=== PATIENT | male | born 1960 | race Caucasian/White ===

== ENCOUNTER 2019-11-16 06:23 | Day surgery (SDC) | payer OTHER ==
[2019-11-11 14:48] LABS: Absolute Lymphocytes (CBC) 0.3 K/uL (0.7-4.9); Basophils % 0.5 % (0-1.3); Hematocrit 38.6 % (39.6-49.0); Lymphocytes % 3.3 % (15.3-44.8); MPV 9.5 fL (7.6-11.3); RBC Red Blood Cell Count 4.71 M/uL (4.33-5.43)
[2019-11-11 15:11] LABS: Blood Morphology Comment NOT SEEN (NOT SEEN); Platelet Estimate ADEQ; Urine White Blood Cell Casts OK
[2019-11-16] MEDS ORDERED: Ringers Lactate 1,000 ML IV ONE ×3 (06:44→13:09)
[2019-11-16] MEDS ORDERED: LIDOCAINE 1% MPF 5 ML VIAL ONE (07:06)
[2019-11-16] MEDS ORDERED: MIDAZOLAM HCL 2 MG/2 ML INJ ONE ×2 (07:06→11:32)
[2019-11-16] MEDS ORDERED: FENTANYL CITR 100 MCG/2 ML ONE ×2 (07:06→11:33)
[2019-11-16] MEDS ORDERED: propofoL 200 MG/20 ML VIAL IV ONE ×2 (07:06→11:32)
[2019-11-16] MEDS ORDERED: Mastisol Adhesive Liq ONE (07:13)
[2019-11-16] MEDS: LIDOCAINE 1% W/EPI 1:100,000 MDV 20 ML VIAL ONE ×2 (07:16→12:36)
[2019-11-16] MEDS ORDERED: LIDOCAINE 2% MPF 5 ML VIAL ONE (11:32)
[2019-11-16] MEDS ORDERED: ONDANSETRON 4 MG/2 ML VIAL ONE (11:33)
[2019-11-16] MEDS ORDERED: Phenylephrine HCl 10 MG/ML 1 ML VIAL ONE (12:37)
[2019-11-16] MEDS ORDERED: NS 0.9% VIAL 10 ML ONE (12:37)
[2019-11-16] MEDS ORDERED: EPHEDRINE SULF 50 MG/ML VIAL ONE (12:46)
--- NOTE | 2019-11-16 13:13 | P.BOP ---
Preoperative diagnosis: right neck mass Postoperative diagnosis: same Primary procedure: incisional lymph node biospy Wholesale Buyer: MARGARETTE KIM Estimated blood loss: minimal Specimen: R fixed neck mass Findings: invasion into SCM Anesthesia: General Complications: None Fluids & blood products: crystalloid 800ml Transferred to: Recovery Room Condition: Good
[2019-11-16 14:11] VITALS: TEMP 97
[2019-11-16 14:56] VITALS: BP 125/67; O2SAT 100
--- NOTE | 2019-11-17 00:29 | OP ---
Date of Procedure: 11/16/2019 Surgeon: Gemini Gaspar MD Supervisor Post Wave: Betsy Ratliff. Preoperative Diagnosis: 5 cm right fixed neck mass. Postoperative Diagnosis: 5 cm right fixed neck mass. Procedure: Incisional biopsy of deep cervical lymph node. Indications For Procedure: Presents with a large fixed right neck mass. He underwent a fine-needle aspiration biopsy which was nondiagnostic. After consideration of this, a CT of the neck was made, which confirmed a firm 4.5, solid mass, which was not robustly contrast enhancing and did not appear to be intimately attached or involving the carotid. The risks, benefits, and alternatives were discussed with the patient who agreed to proceed. In the knee interim planning stages the patient lost approximately 30 pounds and was complaining of dizziness and was noted to be hypotensive in the preop area. On arrival to the preop on the day of surgery, his systolic blood pressure was 80. He was treated with a bolus of IV fluids and improved to the 84 to 92 systolic range. Decision was made to defer surgery several hours to ensure the patient had a stable blood pressure before proceeding to the operating room. At approximately 1130 the patient was noted to have stable blood pressure in the preoperative area with systolics around 100 to 110, and decision was made to proceed with surgery. Description Of Procedure: The patient was brought to the operating room. He was placed under general anesthesia via LMA. The head was turned to the left for exposure of the right neck. The neck was cleaned with alcohol and planned skin incision site was injected with 1% lidocaine with epinephrine. A total of 2 mL were used. The skin was then prepped and draped in a sterile fashion with Betadine. A 2-1/2 cm incision was made through the skin and subcutaneous tissues. Platysma was identified and divided. The mass was deep to the supraclavicular muscle. The posterior border of this muscle was identified and retracted anteriorly. A Bovie electrocautery was then used to remove a 2 x 2 x 1.5 portion of the mass which was sent fresh to pathology for evaluation. The bleeding from the surgical site was controlled with direct pressure and Bovie electrocautery. The wound was then thoroughly irrigated and hemostasis was ensured. The incision was then closed in a layered fashion using 4-0 Vicryl deep sutures and a 5-0 fast-absorbing running suture. The skin was cleaned and dried, and an adhesive bandage was applied over the incision site. The patient was then returned to care of anesthesia for extubation in the operating room. During the procedure, the patient received several small boluses of fluid, but his blood pressure remained stable. Patient was then was transported to the recovery room in stable condition. Complications: None. Disposition: The patient will be discharged home in the care of his brother and will be contacted regarding the results of the pathology at a later date. PRANAY Voice ID: [id number] Report ID: [id number] MTDD
== END 2019-11-16 14:50 | disposition home or self-care (01) ==
LOC: OR 06:23
PROVIDERS: ATTEND Otolaryngology
PROC: 07B10ZX Excision of Right Neck Lymphatic, Open Approach, Diagnostic (ICD-10-PCS; principal; 2019-11-16 07:30)
DX: C76.0 Malignant neoplasm of head, face and neck (principal); I25.10 Atherosclerotic heart disease of native coronary artery without angina pectoris; M19.90 Unspecified osteoarthritis, unspecified site; I10 Essential (primary) hypertension; J30.9 Allergic rhinitis, unspecified; F17.200 Nicotine dependence, unspecified, uncomplicated
CPT/HCPCS: 85025; 36415; 88305; 38510; J2704 ×2; J2370; J2250; J3010; J7120 ×3; J2405; 88333

== ENCOUNTER 2019-11-18 15:31 | Inpatient (IN) | payer OTHER ==
[2019-11-18] MEDS ORDERED: NA CHLORIDE 0.9% 500 ML ONE (16:27)
[2019-11-18 16:32] LABS: Absolute Lymphocytes (CBC) 0.5 K/uL (0.7-4.9); Basophils % 0.3 % (0-1.3); Lymphocytes % 6.2 % (15.3-44.8); MPV 8.3 fL (7.6-11.3); RBC Red Blood Cell Count 4.63 M/uL (4.33-5.43)
--- NOTE | 2019-11-18 16:35 | RAD REPORT ---
EXAM DESCRIPTION: RAD - Chest Single View - 11/18/2019 4:22 pm CLINICAL HISTORY: Dyspnea COMPARISON: May 2013 TECHNIQUE: AP portable chest image was obtained 1614 hours . FINDINGS: No peripheral mass or consolidation. Lung volumes are low. Right hemidiaphragm elevation n oted. Heart and vasculature are normal. No measurable pleural effusion and no pneumothorax. No acute bony abnormality seen. No acute aortic findings suspected. IMPRESSION: No acute cardiopulmonary process.
[2019-11-18 16:50] LABS: Potassium 4.3 mmol/L (3.5-5.1)
[2019-11-18 17:16] LABS: Blood Morphology Comment NOT SEEN (NOT SEEN); Platelet Estimate ADEQ
--- NOTE | 2019-11-18 17:20 | RAD REPORT ---
EXAM DESCRIPTION: CT - Chest For Pe Angio - 11/18/2019 5:06 pm CLINICAL HISTORY: DYSPNEA COMPARISON: Chest Single View dated 11/18/2019 TECHNIQUE: Dynamically enhanced 3 mm thick images of the chest were obtained during administration o f approximately 150mL Isovue 370 IV contrast. Coronal and oblique MIP reconstruction images were gene rated and reviewed. Exam utilizes a protocol to evaluate the pulmonary arterial tree. All CT scans are performed using dose optimization technique as appropriate and may include automated exposure control or mA/KV adjustment according to patient size. FINDINGS: No pulmonary emboli are identified. The aorta as imaged shows no acute or suspicious finding. No pericardial thickening or effusion. Subpleural airspace opacification is present lateral left upper lung field. No pleural effusion or pl eural thickening. No mediastinal or hilar suspicious masses. No chest wall masses or abnormal axillary lymphadenopathy. IMPRESSION: No pulmonary emboli identified. Small left upper lobe pneumonia.
[2019-11-18] MEDS ORDERED: ALBUTEROL 2.5 MG/3 ML NEB SOL NEB PRN (18:14)
--- NOTE | 2019-11-18 18:15 | ER ---
Nurse's Notes [facility] Name: Bernard Joiner Jr Age: 59 yrs Sex: Male : 1960 Arrival Date: 11/18/2019 Time: 15:31 Bed 24 Private MD: Diagnosis: Hypotension, unspecified;Dehydration;Pneumonia Presentation: 11/18 15:50 Presenting complaint: Patient states: i was sent from [facility] because of mg2 hypotension. systolic BP was 80's. i dont have appetite lately. Transition of care: patient was not received from another setting of care. Onset of symptoms was November 18, 2019. Risk Assessment: Do you want to hurt yourself or someone else? Patient reports no desire to harm self or others. Initial Sepsis Screen: Does the patient meet any 2 criteria? No. Patient's initial sepsis screen is negative. Does the patient have a suspected source of infection? No. Patient's initial sepsis screen is negative. Care prior to arrival: None. 15:50 Method Of Arrival: Wheelchair mg2 15:50 Acuity: CHARLIE 3 mg2 Historical: - Allergies: 16:58 No Known Allergies; mg2 - Home Meds: 16:58 Lisinopril Oral [Active]; Metoprolol Tartrate Oral [Active]; atorvastatin oral oral mg2 [Active]; Aspirin Oral [Active]; Plavix Oral [Active]; Fish Oil oral oral [Active]; - PMHx: 16:58 lymphoma; Hyperlipidemia; Hypertension; mg2 - PSHx: 16:58 lymphoma removal in the neck area; Heart stents; open heart surgery; mg2 - Immunization history:: Flu vaccine is not up to date. - Social history:: Smoking status: . - Ebola Screening: : No symptoms or risks identified at this time. - Family history:: not pertinent. - Hospitalizations: : No recent hospitalization is reported. Screenin:01 Abuse screen: Denies threats or abuse. Denies injuries from another. Nutritional mg2 screening: No deficits noted. Tuberculosis screening: No symptoms or risk factors identified. Fall Risk Ambulatory Aid- None/Bed Rest/Nurse Assist (0 pts). Assessment: 16:01 Reassessment: echo at bedside ongoing. mg2 16:01 General: Appears in no apparent distress. comfortable, Behavior is calm, cooperative. mg2 Pain: Denies pain. Neuro: Level of Consciousness is awake, alert, obeys commands, Oriented to person, place, time, situation. Cardiovascular: Capillary refill < 3 seconds Patient's skin is warm and dry. Respiratory: patient is doing pursed lip breathing. GI: Reports loss of appetite. : No signs and/or symptoms were reported regarding the genitourinary system. EENT: No signs and/or symptoms were reported regarding the EENT system. Derm: Skin is pale. Musculoskeletal: Circulation, motion, and sensation intact. Capillary refill < 3 seconds. 18:48 Reassessment: Patient appears in no apparent distress at this time. Patient and/or mg2 family updated on plan of care and expected duration. Pain level reassessed. Patient is alert, oriented x 3, equal unlabored respirations, skin warm/dry/pink. dr valles -hospitalist came and assessed the patient. admission agreed by the patient. Vital Signs: 15:53 BP 98 / 68; Pulse 82; Resp 18; Pulse Ox 98% on R/A; mg2 16:33 Temp 98.8; mg2 16:51 BP 94 / 56; Pulse 76; Resp 18; Pulse Ox 99% on R/A; mg2 16:58 Weight 84.37 kg; Height 5 ft. 6 in. (167.64 cm); mg2 17:17 BP 130 / 78; Pulse 83; Resp 18; Pulse Ox 98% on R/A; mg2 18:49 BP 115 / 78; Pulse 80; Resp 18; Temp 98.5; Pulse Ox 100% on R/A; mg2 16:58 Body Mass Index 30.02 (84.37 kg, 167.64 cm) mg2 ED Course: 15:31 Patient arrived in ED. as 15:38 Ricco Curtis MD is Attending Physician. rn 15:50 Milton Wilson RN is Primary Nurse. mg2 15:53 Triage completed. mg2 15:54 Arm band placed on. mg2 16:03 Patient has correct armband on for positive identification. monitor and storage bin tender on. Pulse mg2 ox on. NIBP on. Door closed. Warm blanket given. 16:22 XRAY Chest (1 view) In Process Unspecified. EDMS 16:32 No provider procedures requiring assistance completed. Inserted saline lock: 20 gauge mg2 in right antecubital area, using aseptic technique. Blood collected. by PASHA Dawkins. 16:51 Pillow given. mg2 17:06 CT Chest For PE Angio In Process Unspecified. EDMS 18:13 Eder Dacosta MD is Hospitalizing Provider. rn 19:59 Patient admitted, IV remains in place. mg2 Administered Medications: 16:27 Drug: NS 0.9% 500 ml Route: IV; Rate: bolus; Site: right antecubital; mg2 18:47 Follow up: Response: No adverse reaction; IV Status: Completed infusion; IV Intake: mg2 500ml 18:47 Drug: LevaQUIN 750 mg Volume: 150 ml; Route: IVPB; Infused Over: 90 mins; Site: right mg2 antecubital; 19:30 Follow up: IV Status: Infusion continued upon admission mg2 Intake: 18:47 IV: 500ml; Total: 500ml. mg2 Outcome: 18:14 Decision to Hospitalize by Provider. rn 19:59 Admitted to Tele accompanied by tech, via wheelchair, room 415, with chart, Report mg2 called to PASHA Saldivar 19:59 Condition: stable 19:59 Instructed on the need for admit, Demonstrated understanding of instructions. 20:00 Patient left the ED. mg2 Signatures: Dispatcher [employer] Debora Vasques Roman, MD MD rn Gardose, Michele, RN RN mg2
--- NOTE | 2019-11-18 18:15 | EDPHYS ---
Physician Documentation [facility] Name: Bernard Joiner Jr Age: 59 yrs Sex: Male : 1960 Arrival Date: 11/18/2019 Time: 15:31 Bed 24 Private MD: ED Physician Ricco Curtis HPI: 11/18 16:14 This 59 yrs old Male presents to ER via Wheelchair with complaints of Blood rn Pressure Problem. 16:[address] Kat' office for low blood pressure. Has been feeling rn generalized weakness for some time, has possible lymphoma vs cancer, had neck surgery a few days ago, no problems from surgery. No neck pain or trouble swallowing. Reports loss of appetite and not eating/drinking lately, feels is cause of his low blood pressure. Seen by Dr. Kat, who does not believe this is cardiac in nature, and feels is dehydration and requests fluids be given and ECHO performed to rule out effusion/tamponade. . Onset: The symptoms/episode began/occurred at an unknown time. Severity of symptoms: At their worst the symptoms were mild. 16:21 The patient has experienced similar episodes in the past. rn Historical: - Allergies: 16:58 No Known Allergies; mg2 - Home Meds: 16:58 Lisinopril Oral [Active]; Metoprolol Tartrate Oral [Active]; atorvastatin oral oral mg2 [Active]; Aspirin Oral [Active]; Plavix Oral [Active]; Fish Oil oral oral [Active]; - PMHx: 16:58 lymphoma; Hyperlipidemia; Hypertension; mg2 - PSHx: 16:58 lymphoma removal in the neck area; Heart stents; open heart surgery; mg2 - Immunization history:: Flu vaccine is not up to date. - Social history:: Smoking status: . - Ebola Screening: : No symptoms or risks identified at this time. - Family history:: not pertinent. - Hospitalizations: : No recent hospitalization is reported. ROS: 17:40 Constitutional: Negative for fever, chills Eyes: Negative for injury, pain, redness, rn and discharge, Neck: Negative for injury, pain, and swelling, Cardiovascular: Negative for chest pain, palpitations, and edema, Respiratory: Negative for cough, wheezing, and pleuritic chest pain, Abdomen/GI: Negative for abdominal pain, nausea, vomiting, diarrhea, and constipation, MS/Extremity: Negative for injury and deformity, Skin: Negative for injury, rash, and discoloration, Neuro: Negative for headache, numbness, tingling, and seizure. Exam: 17:40 Constitutional: This is a well developed, well nourished patient who is awake, alert, rn and in no acute distress. Head/Face: Normocephalic, atraumatic. Eyes: Pupils equal round and reactive to light, extra-ocular motions intact. Lids and lashes normal. Conjunctiva and sclera are non-icteric and not injected. Cornea within normal limits. Periorbital areas with no swelling, redness, or edema. ENT: dry MM Cardiovascular: Regular rate and rhythm. No pulse deficits. Respiratory: Some pursed lip breathing but normal rate, clear bilaterally, and speaking full sentences Abdomen/GI: soft, non-tender Skin: Warm, dry with normal turgor. Normal color with no rashes, no lesions, and no evidence of cellulitis. MS/ Extremity: Pulses equal, no cyanosis. Neurovascular intact. Full, normal range of motion. Equal circumference. Neuro: Awake and alert, GCS 15, oriented to person, place, time, and situation. Cranial nerves II-XII grossly intact. Motor strength 5/5 in all extremities. Sensory grossly intact. Vital Signs: 15:53 BP 98 / 68; Pulse 82; Resp 18; Pulse Ox 98% on R/A; mg2 16:33 Temp 98.8; mg2 16:51 BP 94 / 56; Pulse 76; Resp 18; Pulse Ox 99% on R/A; mg2 16:58 Weight 84.37 kg; Height 5 ft. 6 in. (167.64 cm); mg2 17:17 BP 130 / 78; Pulse 83; Resp 18; Pulse Ox 98% on R/A; mg2 18:49 BP 115 / 78; Pulse 80; Resp 18; Temp 98.5; Pulse Ox 100% on R/A; mg2 16:58 Body Mass Index 30.02 (84.37 kg, 167.64 cm) mg2 MDM: 15:38 Patient medically screened. rn 17:50 ED course: Per verbal report, no acute abnormality on ECHO. Specifically no tamponade.. rn 18:12 Differential Diagnosis sepsis, pneumonia. Data reviewed: vital signs, nurses notes, tag and label cutter test result(s), EKG, radiologic studies, CT scan, plain films, and as a result, I will admit patient. Counseling: I had a detailed discussion with the patient and/or guardian regarding: the historical points, exam findings, and any diagnostic results supporting the discharge/admit diagnosis, lab results, radiology results, the need for further work-up and treatment in the hospital. Response to treatment: the patient's symptoms have markedly improved after treatment, and as a result, I will admit patient. 11/18 16:08 Order name: CBC with Diff; Complete Time: 17:50 rn 11/18 16:08 Order name: Basic Metabolic Panel; Complete Time: 17:50 11/18 16:08 Order name: N-Terminal Pro-brain Natriuretic Peptide; Complete Time: 17:50 11/18 16:08 Order name: Urine Microscopic Only rn 11/18 16:36 Order name: Manual Differential; Complete Time: 17:50 [facility] 11/18 18:09 Order name: Blood Culture Adult (2) rn 11/18 15:49 Order name: Echo w/ Doppler em1 11/18 16:08 Order name: EKG; Complete Time: 16:09 11/18 16:08 Order name: XRAY Chest (1 view); Complete Time: 17:50 rn 11/18 16:09 Order name: CT Chest For PE Angio; Complete Time: 17:50 11/18 18:19 Order name: CONS Pharmacy Consult [facility] 11/18 18:19 Order name: Regular [facility] 11/18 16:08 Order name: IV Start; Complete Time: 16:27 rn 11/18 16:08 Order name: EKG - Nurse/Tech; Complete Time: 16:50 rn Administered Medications: 16:27 Drug: NS 0.9% 500 ml Route: IV; Rate: bolus; Site: right antecubital; mg2 18:47 Follow up: Response: No adverse reaction; IV Status: Completed infusion; IV Intake: mg2 500ml 18:47 Drug: LevaQUIN 750 mg Volume: 150 ml; Route: IVPB; Infused Over: 90 mins; Site: right mg2 antecubital; 19:30 Follow up: IV Status: Infusion continued upon admission mg2 Disposition: 11/18/19 18:14 Hospitalization ordered by Eder Dacosta for Inpatient Admission. Preliminary diagnosis are Hypotension, unspecified, Dehydration, Pneumonia. - Bed requested for Telemetry/MedSurg (Inpatient). - Status is Inpatient Admission. mg2 - Condition is Stable. - Problem is new. - Symptoms have improved. UTI on Admission? No Signatures: Dispatcher [employer] EDMS Ricco Curtis MD MD rn Lasagna, Tonya, RN RN tl1 Milton Wilson RN RN mg2 Corrections: (The following items were deleted from the chart) 16:22 16:[address] Kat' office for low blood pressure. Has been feeling rn generalized weakness for some time, has possible lymphoma vs cancer, had neck surgery a few days ago, no problems from surgery. No neck pain or trouble swallowing. Reports loss of appetite and not eating/drinking lately, feels is cause of his low blood pressure. . rn 18:30 18:14 Hospitalization Ordered by Eder Dacosta MD for Inpatient Admission. Preliminary tl1 diagnosis is Hypotension, unspecified; Dehydration; Pneumonia. Bed requested for Telemetry/MedSurg (Inpatient). Status is Inpatient Admission. Condition is Stable. Problem is new. Symptoms have improved. UTI on Admission? No. rn 20:00 18:30 11/18/2019 18:14 Hospitalization Ordered by Eder Dacosta MD for Inpatient mg2 Admission. Preliminary diagnosis is Hypotension, unspecified; Dehydration; Pneumonia. Bed requested for Telemetry/MedSurg (Inpatient). Status is Inpatient Admission. Condition is Stable. Problem is new. Symptoms have improved. UTI on Admission? No. tl1
--- NOTE | 2019-11-18 18:19 | P.HP ---
Certification for Inpatient Patient admitted to: Observation Practitioner: I am a practitioner with admitting privileges, knowledge of patient current condition, hospital course, and medical plan of care. Services: Services provided to patient in accordance with Admission requirements found in Title 42 Section 412.3 of the Code of Federal Regulations Patient History Date of Service: 11/18/19 Reason for admission: Hypotension History of Present Illness: Mr. 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 Patient was noted to be hypotensive. He was found to have a right neck mass 2 months ago, underwent excisional biopsy 2 days ago. For the past 2 months, patient has had an unintentional weight loss of 40 lb. He endorses significantly poor appetite with very minimal p.o. intake. He also noticed that his urine output has decreased over the past few weeks. Patient has a productive cough with yellowish sputum, unable to establish when it started. He denies any fever nor chills. Patient lives alone and a mostly bed-bound. He is symptomatic with this hypotension as he reports significant lightheadedness with position changes. Symptoms been ongoing for few months. Allergies No Known Allergies Allergy (Verified 11/11/19 13:47) Home medications list reviewed: No (not available) Home Medications: Docosahexanoic AC/Epa [Fish Oil 1,000 MG*] 3,000 mg PO 1800 05/10/13 Pravastatin [Pravachol*] 40 mg PO 1800 05/10/13 Aspirin [Aspirin EC 325 MG] 325 mg PO DAILY 11/11/19 Clopidogrel Bisulfate [Plavix] 75 mg PO DAILY 11/11/19 Metoprolol Succinate [Toprol Xl] 50 mg PO BID 11/11/19 - Past Medical/Surgical History Diabetic: No -: htn -: high cholestrol -: angina -: R neck mass -: heart cath 2002 -: s/p excisional biopsy -: CABG - Social History Smoking Status: Former smoker (quit about 1 month ago) Alcohol use: Yes CD- Drugs: No Caffeine use: Yes Review of Systems 10-point ROS is otherwise unremarkable General: Weakness, Malaise Respiratory: Cough, Shortness of Breath, Sputum Physical Examination - Vital Signs Temperature: 98.8 F Blood Pressure: 96/68 Pulse: 82 Respirations: 18 Pulse Ox (%): 96 - Physical Exam General: Alert, In no apparent distress HEENT: Atraumatic, PERRLA, Mucous membr. moist/pink, EOMI, Sclerae nonicteric Neck: Supple, 2+ carotid pulse no bruit, No LAD, Without JVD or thyroid abnormality Respiratory: Clear to auscultation bilaterally, Diminished Cardiovascular: Regular rate/rhythm, Normal S1 S2 Gastrointestinal: Normal bowel sounds, No tenderness Musculoskeletal: No tenderness Integumentary: No rashes Neurological: Normal gait, Normal speech, Normal strength at 5/5 x4 extr, Normal tone, Normal affect Lymphatics: Other (R neck dressing intact) - Studies Laboratory Data (last 24 hrs) 11/18/19 16:20: WBC 7.3, Hgb 12.9 L, Hct 38.0 L, Plt Count 166 11/18/19 16:20: Sodium 131 L, Potassium 4.3, BUN 35 H, Creatinine 1.01, Glucose 79 Imagings Data: No pulmonary emboli identified. Small left upper lobe pneumonia. Assessment and Plan - Plan Mr. Joiner is 59-year-old with suspected malignancy presenting with severe hypovolemia. #Severe hypovolemia-blood pressure improved with IV boluses. Patient was also on antihypertensive at home, on hold for the past 3 days. -blood pressure has improved. monitor closely -IV hydration. #hypotension-multi factorial. Hypovolemia versus acute infection. -hold all antihypertensive. -consult grain cleaner and transfer operator. -continue IV hydration. #Left upper lobe pneumonia-patient has no leukocytosis however with bandemia. - Blood cultures -IV hydration and monitor perfusion. -IV antibiotics. - monitor on telemetry. #right neck mass-status post excision or biopsy. Pathology remains pending. -patient with unintentional weight loss as well. # failure to thrive-resulting in generalized weakness. - P.o. intake encouraged. -PT/OT evaluation. #CAD status post CABG-will resume home medications once available. #Hypovolemic hyponatremia- on NS IVF -reassess in a.m DVT prophylaxis-Lovenox Patient is full code. - Advance Directives Does patient have a Living Will: No Does patient have a Durable POA for Healthcare: No - Code Status/Comfort Care Code Status Assessed: Yes Code Status: Full Code
[2019-11-18] MEDS ORDERED: Levofloxacin 750mg IV 750 MG/150 ML BAG IV ONE (18:23)
[2019-11-18 21:39] LABS: Urine Appearance CLEAR; Urine Blood NEGATIVE (NEG); Urine Color YELLOW; Urine Glucose 1+ (NEG); Urine Protein NEGATIVE (NEG); Urine Specific Gravity >=1.030 (1.005-1.030); Urine Urobilinogen 0.2 mg/dL (0.2-1.0); Urine pH 6.5 (5.0-7.0)
[2019-11-18] MEDS: D5 0.9 NS 1,000 ML IV SCH (21:41)
[2019-11-18] MEDS ORDERED: CEFTRIAXONE/SWI 1gm 1 GM/10 ML SYR ONE (21:57)
[2019-11-18] MEDS ORDERED: CEFTRIAXONE 1 GM/NS 50 ML 1 GM/50 ML BAG IV SCH (22:00)
[2019-11-18 22:05] LABS: Urine Bilirubin NEGATIVE (NEG); Urine Microscopic Reflex NO UMIC
[2019-11-18 22:08] VITALS: BMI 29.9
[2019-11-18 22:47] LABS: Urine Bacteria <20 /HPF (NONE SEEN); Urine Culture Reflex Order NOT NEEDED; Urine RBC <5 /HPF (NONE SEEN)
[2019-11-18] MEDS ORDERED: AZITHROMYCIN 500 MG INJ IVPB ONE (22:57)
[2019-11-18] MEDS ORDERED: NA CHLORIDE 0.9% 250 ML ONE (22:58)
[2019-11-18] MEDS: AZITHROMYCIN IV 500 MG in NA CHLORIDE 0.9% 250 ML IVPB SCH (23:01)
[2019-11-18] MEDS: ACETAMINOPHEN 500 MG TAB PO PRN (23:57)
[2019-11-19] MEDS: D5 0.9 NS 1,000 ML IV SCH ×3 (05:00→17:09)
--- NOTE | 2019-11-19 08:09 | EKG ---
Test Date: 2019-11-18 Test Time: 16:46:46 [employer] Hand: MEASUREMENT RESULTS: Intervals: Rate: 78 AL: 154 QRSD: 88 QT: 338 QTc: 385 [place]: P: 66 AL: 154 QRS: 88 T: 120 INTERPRETIVE STATEMENTS: Normal sinus rhythm T wave abnormality, consider anterior ischemia Abnormal ECG Compared to ECG 05/11/2013 06:57:02 T-wave abnormality now present Myocardial infarct finding no longer present ST (T wave) deviation no longer present Possible ischemia still present Electronically Signed On 11-19-19 08:07:30 [employer]IOR [employer] DBA by Shoaib Foster
--- NOTE | 2019-11-19 08:33 | ECHO ---
HEIGHT: 5 ft 6 in WEIGHT: 186 lb 0 oz DATE OF STUDY: 11/18/[address]: Ricco Curtis JR, MD 2-DIMENSIONAL: YES M.MODE: YES DOPPLER: YES COLOR FLOW: YES TDS: YES PORTABLE: YES DEFINITY: NO BUBBLE STUDY: NO DIAGNOSIS: LOW BLOOD PRESSURE CARDIAC HISTORY: CATHERIZATION: YES SURGERY: YES PROSTHETIC VALVE: NO PACEMAKER: NO MEASUREMENTS (cm) DIASTOLIC (NORMALS) SYSTOLIC (NORMALS) IVSd 1.1 (0.6-1.2) LA Diam 3.5 (1.9-4.0) LVEF 51% LVIDd 4.3 (3.5-5.7) LVIDs 3.2 (2.0-3.5) %FS 26% LVPWd 1.5 (0.6-1.2) Ao Diam 2.9 (2.0-3.7) 2 DIMENSIONAL ASSESSMENT: RIGHT ATRIUM: NORMAL LEFT ATRIUM: NORMAL RIGHT VENTRICLE: NORMAL LEFT VENTRICLE: NORMAL TRICUSPID VALVE: NORMAL MITRAL VALVE: MITRAL ANNULAR CALCIFICATION PULMONIC VALVE: NORMAL AORTIC VALVE: NORMAL PERICARDIAL EFFUSION: NONE AORTIC ROOT: NORMAL LEFT VENTRICULAR WALL MOTION: NORMAL. DOPPLER/COLOR FLOW: NORMAL. COMMENTS: NORMAL LEFT VENTRICULAR SIZE AND FUNCTION. NO EFFUSION. MITRAL ANNULAR CALCIFICATION. NO WALL MOTION ABNORMALITY. TECHNOLOGIST: LILLIAM BARKLEY
[2019-11-19 09:19] LABS: Absolute Lymphocytes (CBC) 0.5 K/uL (0.7-4.9); Basophils % 0.1 % (0-1.3); Hematocrit 34.4 % (39.6-49.0); Lymphocytes % 9.5 % (15.3-44.8); MPV 8.1 fL (7.6-11.3); RBC Red Blood Cell Count 4.22 M/uL (4.33-5.43)
[2019-11-19 09:40] LABS: ALT/SGPT 24 U/L (12-78); AST/SGOT 40 U/L (15-37); Albumin 2.7 g/dL (3.4-5.0); Alkaline Phosphatase 78 U/L (45-117); BUN Blood Urea Nitrogen 21 mg/dL (7-18); Bicarbonate 29 mmol/L (21-32); Bilirubin Direct 0.2 mg/dL (0-0.2); Bilirubin Total 0.4 mg/dL (0.2-1.0); Glucose Level 131 mg/dL (74-106); Potassium 3.6 mmol/L (3.5-5.1); Protein, Total 5.7 g/dL (6.4-8.2); Sodium Level 129 mmol/L (136-145)
[2019-11-19 09:47] LABS: Magnesium 1.4 mg/dL (1.8-2.4)
--- NOTE | 2019-11-19 10:34 | P.PN ---
Subjective Date of Service: 11/19/19 Chief Complaint: Hypotension Subjective: No new changes Still not eating. poor appetite Physical Examination - Vital Signs Temperature: 96.9 F Blood Pressure: 120/68 Pulse: 79 Respirations: 18 Pulse Ox (%): 95 - Physical Exam General: Alert, Other (ill appearing) HEENT: Atraumatic, PERRLA, EOMI Neck: Supple, JVD not distended Respiratory: Clear to auscultation bilaterally, Diminished (R) Cardiovascular: Regular rate/rhythm, Normal S1 S2 Gastrointestinal: Normal bowel sounds, No tenderness Musculoskeletal: No tenderness Integumentary: No rashes Neurological: Normal speech, Normal tone, Abnormal affect (Flat) Lymphatics: No axilla or inguinal lymphadenopathy - Studies Laboratory Data (last 24 hrs) 11/18/19 16:20: WBC 7.3, Hgb 12.9 L, Hct 38.0 L, Plt Count 166 11/18/19 16:20: Sodium 131 L, Potassium 4.3, BUN 35 H, Creatinine 1.01, Glucose 79 Laboratory Tests 11/18/19 11/19/19 11/19/19 16:20 09:04 09:04 WBC 5.2 D Hct 34.4 L Plt Count 139 L Segmented Neutrophils 84 H Band Neutrophils 8 H Absolute Lymphocytes 0.5 L Lymphocytes 6 L Creatinine 0.81 Serum Total Protein 5.7 L Medications List Reviewed: Yes Assessment And Plan - Plan Mr. Joiner is 59-year-old with suspected malignancy presenting with severe hypovolemia. #Severe hypovolemia-blood pressure improved with IV boluses. Patient was also on antihypertensive at home, on hold for the past 3 days. -blood pressure has improved. monitor closely -IV hydration. #Hypotension-multi factorial. Hypovolemia versus acute infection. -hold all antihypertensive. -consult certified low vision therapist. -continue IV hydration. #Left upper lobe pneumonia-patient has no leukocytosis however with bandemia. - Blood cultures -IV hydration and monitor perfusion. -IV antibiotics. - monitor on telemetry. #right neck mass-status post excision or biopsy. Pathology remains pending. -patient with unintentional weight loss as well. # failure to thrive-resulting in generalized weakness. - P.o. intake encouraged. -consult back facer -PT/OT evaluation. #CAD status post CABG-will resume home medications once available. #Hypovolemic hyponatremia- on NS IVF; worsened. -Urine na and osm, serum osm ordered -repeat BMP -consider coiler consult DVT prophylaxis-Lovenox Patient is full code.
[2019-11-19] MEDS ORDERED: Magnesium Sulfate 2gm IVPB 2 G/50 ML BAG IV ONE (11:00)
[2019-11-19 13:14] LABS: Anisocytosis 1+; Blood Morphology Comment NOTED (NOT SEEN); Platelet Estimate ADEQ
--- NOTE | 2019-11-19 15:20 | CON ---
Date of Consultation: 11/19/2019 Mr. Joiner is 59. He was admitted on 11/18/[address] Kat' office for hypotension to rule o ut pericardial effusion. I saw the patient on 11/19/2019. History Of Present Illness: Mr. Joiner is 59, has a history of hypertension, dyslipidemia, and schrader s had CABG before. He had a neck mass excisional biopsy 3 days ago, and apparently, has been hypoten sive even prior to this. He has had significant weight loss. He was continuing his metoprolol and l isinopril at home and that had been held since Friday. He saw Dr. Kat on . He was still hypotensive and Dr. Kat sent him to the hospital to rule out pericardial effusion. Echocardiogra m that was done was normal. Normal ejection fraction. No wall motion abnormalities. No effusion. Patient still had borderline hypotension. He is being hydrated, has no cardiac complaint. Allergies: NONE. Review of Systems: Negative. Social History: Negative. Family History: Noncontributory. Medications: At home include aspirin, Plavix, Lipitor, lisinopril, and metoprolol. The lisinopril a nd metoprolol have been held. Physical Examination: Vital Signs: Stable. Afebrile. No acute distress. HEENT: Negative. Neck: Supple with no bruit. Chest: Clear. Cardiac: Revealed a regular rhythm and rate. No murmurs, gallops, or rubs. Abdomen: Benign. Extremities: Revealed no clubbing, cyanosis, or edema. Diagnostic Data: Sodium was 131. BNP was 500. Rest was negative. Chest x-ray was negative. CTA was negative for pulmonary embolus, but a questionable left upper lobe pneumonia. Impression And Plan: Status post neck mass excisional biopsy, results are pending. We do not really know if he has lymphoma or another form of cancer. We will need to continue to hold the blood press ure medicines, hydrate and await the biopsy results. From an echo standpoint, it was normal. I woul d continue the antibiotics. He does not have any pericardial effusion. He can go home whenever it i s okay with admitting physician. We will see him in the office in the next week or 2. From a ortiz ry artery disease standpoint, he is stable. His dyslipidemia is well controlled on Lipitor. We can definitely discontinue his Plavix. BLUE/RANDALL Voice ID: [id number] Report ID: [id number]
[2019-11-19 18:19] LABS: BUN Blood Urea Nitrogen 16 mg/dL (7-18); Bicarbonate 28 mmol/L (21-32); Glucose Level 124 mg/dL (74-106); Potassium 3.4 mmol/L (3.5-5.1); Sodium Level 129 mmol/L (136-145)
[2019-11-19] MEDS: ACETAMINOPHEN 500 MG TAB PO PRN (19:44)
[2019-11-19] MEDS: CEFTRIAXONE/SWI 1gm 1 GM/10 ML SYR IV SCH (19:53)
[2019-11-19] MEDS: AZITHROMYCIN IV 500 MG in NA CHLORIDE 0.9% 250 ML IVPB SCH (19:58)
[2019-11-19] MEDS: MORPHINE 2 MG/ML SYR IV PRN (22:32)
[2019-11-20] MEDS: D5 0.9 NS 1,000 ML IV SCH ×4 (01:00→21:00)
[2019-11-20] MEDS: ACETAMINOPHEN 500 MG TAB PO PRN (08:57)
[2019-11-20] MEDS: CLOPIDOGREL 75 MG TABLET PO SCH (08:58)
[2019-11-20] MEDS: ATORVASTATIN 80 MG TAB PO SCH (08:58)
[2019-11-20] MEDS: ENSURE PUDDING 4 OZ CUP PO SCH ×2 (08:59→14:00)
[2019-11-20] MEDS ORDERED: ONDANSETRON 4 MG/2 ML VIAL IV PRN (09:10)
[2019-11-20 11:24] LABS: Absolute Lymphocytes (CBC) 0.6 K/uL (0.7-4.9); Basophils % 0.1 % (0-1.3); Hematocrit 32.4 % (39.6-49.0); Lymphocytes % 11.1 % (15.3-44.8); MPV 7.9 fL (7.6-11.3); RBC Red Blood Cell Count 3.95 M/uL (4.33-5.43)
[2019-11-20 11:38] LABS: ALT/SGPT 21 U/L (12-78); AST/SGOT 33 U/L (15-37); Albumin 2.7 g/dL (3.4-5.0); Alkaline Phosphatase 78 U/L (45-117); BUN Blood Urea Nitrogen 9 mg/dL (7-18); Bicarbonate 29 mmol/L (21-32); Bilirubin Total 0.4 mg/dL (0.2-1.0); Glucose Level 121 mg/dL (74-106); Magnesium 1.6 mg/dL (1.8-2.4); Potassium 3.3 mmol/L (3.5-5.1); Protein, Total 5.7 g/dL (6.4-8.2); Sodium Level 132 mmol/L (136-145)
[2019-11-20 11:52] LABS: Blood Morphology Comment NOT SEEN (NOT SEEN); Platelet Estimate DECR
--- NOTE | 2019-11-20 13:59 | P.PN ---
Subjective Date of Service: 11/20/19 Chief Complaint: Hypotension Minimal improvement of appetite. Now reporting post prandial fullness, started weeks ago. Still with some SOB this a.m Physical Examination - Vital Signs Temperature: 97.2 F Blood Pressure: 129/74 Pulse: 71 Respirations: 16 Pulse Ox (%): 92 - Physical Exam General: Alert, Other (ill appearing) HEENT: Atraumatic, PERRLA, EOMI Neck: Supple, JVD not distended Respiratory: Clear to auscultation bilaterally, Normal air movement Cardiovascular: Regular rate/rhythm, Normal S1 S2 Gastrointestinal: Normal bowel sounds, No tenderness Musculoskeletal: No tenderness Integumentary: No rashes Neurological: Normal speech, Normal tone, Abnormal affect Lymphatics: No axilla or inguinal lymphadenopathy - Studies Laboratory Tests 11/20/19 11/20/19 11:02 11:02 RBC 3.95 L Hgb 11.1 L Hct 32.4 L Neutrophils % 76.9 H Sodium 132 L Potassium 3.3 L Creatinine 0.56 Glucose 121 H Calcium 7.8 L Magnesium 1.6 L Medications List Reviewed: Yes Assessment And Plan - Plan Mr. Joiner is 59-year-old with suspected malignancy presenting with severe hypovolemia. #Severe hypovolemia-blood pressure improved with IV boluses. Patient was also on antihypertensive at home, now on hold. -blood pressure has improved. monitor closely -IV hydration. #Hypotension-multi factorial. Hypovolemia versus acute infection. -hold all antihypertensive. -consult felled seam operator. -continue IV hydration. -improved. #Left upper lobe pneumonia-patient had no leukocytosis however with bandemia on admission - Blood cultures -IV hydration and monitor perfusion. -IV antibiotics. - monitor on telemetry. #right neck mass-status post excision or biopsy. Pathology remains pending. -patient with unintentional weight loss as well. # failure to thrive-resulting in generalized weakness. - P.o. intake encouraged. -consulted molder feeder -electrolyte replacement -post prandial fullness- check CT abdomen, rule out obstruction. -PT/OT evaluation. #CAD status post CABG-stable #Hyponatremia- probably hypovolemia, cannot rule out other etiologies. on NS IVF , now mildly improvd. -Urine na and osm, serum osm ordered -will consider engineering director consult DVT prophylaxis-Lovenox Patient is full code. dispo- pending clinical improvement.
[2019-11-20] MEDS ORDERED: POTASSIUM CL SA 10 MEQ TAB PO ONE ×2 (15:00→22:15)
[2019-11-20] MEDS ORDERED: MAGNESIUM SULFATE 1 gm IVPB 1 GM/100 ML BAG IV ONE (15:00)
--- NOTE | 2019-11-20 15:24 | RAD REPORT ---
EXAM DESCRIPTION: CT - Abdomen Pelvis Wo Contrast - 11/20/2019 2:29 pm CLINICAL HISTORY: Abdominal pain COMPARISON: None TECHNIQUE: Computed axial tomography of the abdomen and pelvis was obtained. IV and oral contrast we re not requested. All CT scans are performed using dose optimization technique as appropriate and may include automated exposure control or mA/KV adjustment according to patient size. FINDINGS: The evaluation of solid organs, vessels and bowel is limited secondary to the lack of con trast administration. The liver, spleen, adrenals and kidneys appear grossly normal. The pancreas is normal size. Minimal peripancreatic stranding The appendix is normal. There is no evidence of diverticulitis. Atherosclerosis IMPRESSION: Minimal peripancreatic stranding may indicate a minimal pancreatitis.
[2019-11-20] MEDS: AZITHROMYCIN IV 500 MG in NA CHLORIDE 0.9% 250 ML IVPB SCH (21:04)
[2019-11-20] MEDS: CEFTRIAXONE/SWI 1gm 1 GM/10 ML SYR IV SCH (21:05)
[2019-11-20] MEDS: MORPHINE 2 MG/ML SYR IV PRN (22:28)
[2019-11-21] MEDS: D5 0.9 NS 1,000 ML IV SCH ×3 (06:44→19:30)
[2019-11-21 07:06] LABS: BUN Blood Urea Nitrogen 5 mg/dL (7-18); Bicarbonate 26 mmol/L (21-32); Glucose Level 103 mg/dL (74-106); Potassium 3.6 mmol/L (3.5-5.1); Sodium Level 132 mmol/L (136-145)
[2019-11-21 07:22] LABS: Magnesium 1.4 mg/dL (1.8-2.4)
[2019-11-21] MEDS ORDERED: Magnesium Sulfate 2gm IVPB 2 G/50 ML BAG IV ONE (09:00)
[2019-11-21] MEDS: ENSURE PUDDING 4 OZ CUP PO SCH ×2 (09:00→14:00)
[2019-11-21] MEDS: CLOPIDOGREL 75 MG TABLET PO SCH (10:20)
[2019-11-21] MEDS: ATORVASTATIN 80 MG TAB PO SCH (10:21)
--- NOTE | 2019-11-21 11:12 | P.PN ---
Subjective Date of Service: 11/21/19 Primary Care Provider: Dr. Frey; Cardiology-Dr. Kat Chief Complaint: Hypotension Subjective: Improving, Other (Some nausea this morning. Pain to the epigastric region stable.) Physical Examination - Vital Signs Temperature: 97.6 F Blood Pressure: 128/73 Pulse: 90 Respirations: 17 Pulse Ox (%): 91 - Physical Exam General: Alert, In no apparent distress, Oriented x3, Cooperative HEENT: Atraumatic Neck: Supple Respiratory: Clear to auscultation bilaterally, Normal air movement Cardiovascular: Normal pulses, Regular rate/rhythm Gastrointestinal: Normal bowel sounds, Soft and benign, Non-distended, No masses , No rebound, No guarding, Tenderness (Mild pain to the epigastric region) Integumentary: No cyanosis Neurological: Normal speech, Normal strength at 5/5 x4 extr, Normal tone, Normal affect - Studies Medications List Reviewed: Yes Assessment & Plan Discharge Plan: Home Plan to discharge in: 24 Hours Physician Review Additional Text: Impression: Hypotension likely related to volume depletion and overmedication Left upper lobe pneumonia Diarrhea Mild pancreatitis Right neck mass status post excision and biopsy Mild protein malnutrition CAD with prior CABG Hypertension Plan: Hypotension likely related to volume depletion and overmedication: Blood pressure now stable. Will decrease IV fluids. Encourage oral intake. Will keep clear liquid diet at this time due to possible pancreatitis. Will monitor closely. Blood pressure medication lisinopril and metoprolol have been held as recommended by Cardiology. Continue to monitor closely. Encourage ambulation with physical therapy. Likely discharge in the next 24-48 hr with clinical improvement. Left upper lobe pneumonia: Continue antibiotic therapy. Will check chest x- ray today. Diarrhea: Patient reports diarrhea. Will need to rule out C diff colitis. Will provide lactobacillus. Mild pancreatitis: Lipase unremarkable. CT scan shows possible pancreatitis. Will start a clear liquid diet then advance slowly as tolerated. Right neck mass status post excision and biopsy: Patient had recent biopsy. Await biopsy report. Mild protein malnutrition: Will start clear liquid diet today and advance as tolerated. CAD with prior CABG: Cardiology recommended to discontinue Plavix at this time. Will continue with DVT prophylaxis and aspirin. Hypertension: Blood pressure medication held as recommended by Cardiology due to overmedication. Continue to monitor closely. Time Spent Managing Pts Care (In Minutes): 55
[2019-11-21 11:43] LABS: Albumin 2.8 g/dL (3.4-5.0); Bilirubin Direct 0.2 mg/dL (0-0.2); Bilirubin Total 0.4 mg/dL (0.2-1.0); Protein, Total 5.7 g/dL (6.4-8.2)
--- NOTE | 2019-11-21 14:20 | RAD REPORT ---
EXAM DESCRIPTION: RAD - Chest Pa And Lat (2 Views) - 11/21/2019 1:30 pm CLINICAL HISTORY: Follow up pneumonia COMPARISON: Chest Single View dated 11/18/2019; Chest For Pe Angio dated 11/18/2019 TECHNIQUE: Frontal and lateral views of the chest were obtained. FINDINGS: The lungs are underinflated. Atelectasis change present at the right base. Small right ple ural effusion could be masked. Left lung field pneumonia findings are still present. Mid and upper michelle ng field findings are improved. There is increased opacification in the medial left base which could be new or progressive pneumonia change or shallow inspiration atelectasis. Heart size is normal and central vasculature is within normal limits. No pleural effusion or pneu mothorax seen. No acute bony finding noted. No aortic abnormality. IMPRESSION: Mid and upper left lung field pneumonia changes appear improved. New or increased opacification in the medial base could be additional pneumonia or atelectasis.
[2019-11-21] MEDS: ENOXAPARIN 40 MG/0.4 ML SQ SCH (18:00)
[2019-11-21] MEDS: ASPIRIN EC 81 MG TAB PO SCH (18:00)
[2019-11-21] MEDS: LACTOBACILLUS/ACIDOPHILUS TAB PO SCH ×2 (18:00→20:27)
[2019-11-21] MEDS: AZITHROMYCIN IV 500 MG in NA CHLORIDE 0.9% 250 ML IVPB SCH (20:26)
[2019-11-21] MEDS: CEFTRIAXONE/SWI 1gm 1 GM/10 ML SYR IV SCH (20:26)
[2019-11-22 02:08] VITALS: O2SAT 94
[2019-11-22] MEDS ORDERED: MAGNESIUM SULFATE 1 gm IVPB 1 GM/100 ML BAG IV ONE ×2 (02:10→06:19)
[2019-11-22 04:32] LABS: Absolute Lymphocytes (CBC) 0.6 K/uL (0.7-4.9); Basophils % 0.2 % (0-1.3); Hematocrit 34.5 % (39.6-49.0); Lymphocytes % 10.3 % (15.3-44.8); MPV 7.8 fL (7.6-11.3); RBC Red Blood Cell Count 4.25 M/uL (4.33-5.43)
[2019-11-22 04:43] LABS: BUN Blood Urea Nitrogen 4 mg/dL (7-18); Bicarbonate 28 mmol/L (21-32); Glucose Level 111 mg/dL (74-106); HDL Cholesterol 48 mg/dL (40-60); LDL Cholesterol, Calculated 22 (<130); Lipase 180 U/L (73-393); Magnesium 1.8 mg/dL (1.8-2.4); Potassium 3.2 mmol/L (3.5-5.1); Sodium Level 130 mmol/L (136-145)
[2019-11-22] MEDS ORDERED: POTASSIUM CL SA 10 MEQ TAB PO ONE (09:00)
[2019-11-22] MEDS: ENSURE PUDDING 4 OZ CUP PO SCH ×2 (09:00→14:00)
[2019-11-22] MEDS: D5 0.9 NS 1,000 ML IV SCH (09:07)
[2019-11-22] MEDS: LACTOBACILLUS/ACIDOPHILUS TAB PO SCH ×3 (09:07→21:27)
[2019-11-22] MEDS: ASPIRIN EC 81 MG TAB PO SCH (09:07)
[2019-11-22] MEDS: ATORVASTATIN 80 MG TAB PO SCH (09:08)
[2019-11-22] MEDS: AZITHROMYCIN 250 MG TAB PO SCH (09:10)
[2019-11-22] MEDS ORDERED: LOPERAMIDE HCL 2 MG CAPSULE PO PRN (11:39)
--- NOTE | 2019-11-22 11:39 | P.PN ---
Subjective Date of Service: 11/22/19 Primary Care Provider: Dr. Frey; Cardiology-Dr. Kat Chief Complaint: Hypotension Subjective: Improving (Still with diarrhea. Minimal epigastric pain) Physical Examination - Vital Signs Temperature: 97.2 F Blood Pressure: 151/88 Pulse: 92 Respirations: 15 Pulse Ox (%): 93 - Physical Exam General: Alert, In no apparent distress, Oriented x3, Cooperative HEENT: Atraumatic Neck: Supple Respiratory: Clear to auscultation bilaterally, Normal air movement Cardiovascular: Normal pulses, Regular rate/rhythm Gastrointestinal: Normal bowel sounds, Soft and benign, Non-distended, No masses , No rebound, No guarding, Tenderness (Minimal pain noted to the epigastric region) Musculoskeletal: No tenderness, No warmth Integumentary: No tenderness/swelling, No erythema, No warmth, No cyanosis Neurological: Normal speech, Normal strength at 5/5 x4 extr, Normal tone - Studies Medications List Reviewed: Yes Assessment & Plan Discharge Plan: Home Plan to discharge in: 24 Hours Physician Review Additional Text: Impression: Hypotension likely related to volume depletion and overmedication Left upper lobe pneumonia Diarrhea Mild pancreatitis Right neck mass status post excision and biopsy Mild protein malnutrition CAD with prior CABG Hypertension Plan: Hypotension likely related to volume depletion and overmedication: IV fluids have been adjusted. Diarrhea slightly improved. Await stool culture results. Continue to monitor closely. Continue to adjust blood pressure medication. Encourage ambulation. Likely discharge in the next 24 hr with clinical improvement. Left upper lobe pneumonia: Continue antibiotic therapy. X-ray shows improved Diarrhea: Patient reports diarrhea but better. Will need to rule out C diff colitis. Will provide lactobacillus. May need to add Imodium. Mild pancreatitis: Lipase unremarkable. CT scan shows possible pancreatitis. Continue to advance diet to a GI soft. Right neck mass status post excision and biopsy: Patient had recent biopsy. Await biopsy report. Mild protein malnutrition: Advanced us tolerated. Encourage ambulation. CAD with prior CABG: Cardiology recommended to discontinue Plavix at this time. Will continue with DVT prophylaxis and aspirin. Hypertension: Blood pressure medication held as recommended by Cardiology due to overmedication. Continue to monitor closely. Time Spent Managing Pts Care (In Minutes): 55
[2019-11-22 13:47] LABS: C.diff Antigen/Toxin Ag neg : Tox neg (NEG : NEG)
[2019-11-22] MEDS: ENOXAPARIN 40 MG/0.4 ML SQ SCH (17:20)
[2019-11-22] MEDS: METOPROLOL TAR 25 MG TAB PO SCH (21:27)
[2019-11-22] MEDS: CEFTRIAXONE/SWI 1gm 1 GM/10 ML SYR IV SCH (21:27)
[2019-11-23 06:23] LABS: Absolute Lymphocytes (CBC) 0.8 K/uL (0.7-4.9); Basophils % 0.4 % (0-1.3); Hematocrit 32.2 % (39.6-49.0); Lymphocytes % 12.1 % (15.3-44.8); MPV 7.8 fL (7.6-11.3); RBC Red Blood Cell Count 3.95 M/uL (4.33-5.43)
[2019-11-23 06:27] LABS: BUN Blood Urea Nitrogen 6 mg/dL (7-18); Bicarbonate 27 mmol/L (21-32); Glucose Level 95 mg/dL (74-106); Lipase 121 U/L (73-393); Potassium 3.9 mmol/L (3.5-5.1); Sodium Level 130 mmol/L (136-145)
[2019-11-23 06:28] LABS: Magnesium 1.4 mg/dL (1.8-2.4)
[2019-11-23] MEDS ORDERED: PANTOPRAZOLE 40MG TABLET PO SCH (06:30)
[2019-11-23] MEDS: D5 0.9 NS 1,000 ML IV SCH (06:34)
[2019-11-23] MEDS ORDERED: Magnesium Sulfate 2gm IVPB 2 G/50 ML BAG IV ONE ×2 (07:32→07:38)
[2019-11-23] MEDS ORDERED: POTASSIUM 25 MEQ EFFERV TAB PO ONE (07:39)
[2019-11-23] MEDS: ENSURE PUDDING 4 OZ CUP PO SCH (09:00)
[2019-11-23] MEDS: ASPIRIN EC 81 MG TAB PO SCH (09:48)
[2019-11-23] MEDS: AZITHROMYCIN 250 MG TAB PO SCH (09:48)
[2019-11-23] MEDS: LACTOBACILLUS/ACIDOPHILUS TAB PO SCH (09:48)
[2019-11-23] MEDS: METOPROLOL TAR 25 MG TAB PO SCH (09:48)
[2019-11-23] MEDS: ATORVASTATIN 80 MG TAB PO SCH (09:51)
[2019-11-23] MEDS: ACETAMINOPHEN 500 MG TAB PO PRN (10:27)
[2019-11-23 12:18] VITALS: BP 101/62; TEMP 97.2
--- NOTE | 2019-11-23 12:31 | P.DS ---
Admission Date: 11/19/19 Discharge Date: 11/23/19 Primary Care Provider: Dr. Frey; Cardiology-Dr. Kat Disposition: ROUTINE DISCHARGE Discharge Condition: GOOD Reason for Admission: Hypotension Consultations: Cardiology-Dr. Kat Procedures: CT chest: COMPARISON: Chest Single View dated 11/18/2019 TECHNIQUE: Dynamically enhanced 3 mm thick images of the chest were obtained during administration of approximately 150mL Isovue 370 IV contrast. Coronal and oblique MIP reconstruction images were generated and reviewed. Exam utilizes a protocol to evaluate the pulmonary arterial tree. All CT scans are performed using dose optimization technique as appropriate and may include automated exposure control or mA/KV adjustment according to patient size. FINDINGS: No pulmonary emboli are identified. The aorta as imaged shows no acute or suspicious finding. No pericardial thickening or effusion. Subpleural airspace opacification is present lateral left upper lung field. No pleural effusion or pleural thickening. No mediastinal or hilar suspicious masses. No chest wall masses or abnormal axillary lymphadenopathy. IMPRESSION: No pulmonary emboli identified. Small left upper lobe pneumonia. CT abdomen pelvis: COMPARISON: None TECHNIQUE: Computed axial tomography of the abdomen and pelvis was obtained. IV and oral contrast were not requested. All CT scans are performed using dose optimization technique as appropriate and may include automated exposure control or mA/KV adjustment according to patient size. FINDINGS: The evaluation of solid organs, vessels and bowel is limited secondary to the lack of contrast administration. The liver, spleen, adrenals and kidneys appear grossly normal. The pancreas is normal size. Minimal peripancreatic stranding The appendix is normal. There is no evidence of diverticulitis. Atherosclerosis IMPRESSION: Minimal peripancreatic stranding may indicate a minimal pancreatitis. Follow up chest x-ray: COMPARISON: Chest Single View dated 11/18/2019; Chest For Pe Angio dated 2019 TECHNIQUE: Frontal and lateral views of the chest were obtained. FINDINGS: The lungs are underinflated. Atelectasis change present at the right base. Small right pleural effusion could be masked. Left lung field pneumonia findings are still present. Mid and upper lung field findings are improved. There is increased opacification in the medial left base which could be new or progressive pneumonia change or shallow inspiration atelectasis. Heart size is normal and central vasculature is within normal limits. No pleural effusion or pneumothorax seen. No acute bony finding noted. No aortic abnormality. IMPRESSION: Mid and upper left lung field pneumonia changes appear improved. New or increased opacification in the medial base could be additional pneumonia or atelectasis. ECHO: Ejection fraction 51% LEFT VENTRICULAR WALL MOTION: NORMAL. DOPPLER/COLOR FLOW: NORMAL. COMMENTS: NORMAL LEFT VENTRICULAR SIZE AND FUNCTION. NO EFFUSION. MITRAL ANNULAR CALCIFICATION. NO WALL MOTION ABNORMALITY. Medical problem list: Hypotension likely related to volume depletion and overmedication Left upper lobe pneumonia Diarrhea Mild pancreatitis Right neck mass status post excision and biopsy, pathology showing squamous cell carcinoma Mild protein malnutrition CAD with prior CABG Hypertension Hypomagnesia Brief History of Present Illness: 59-year-old male presented to emergency room with low blood pressure. Patient also reported some mild cough, diarrhea. Patient was admitted for further evaluation.. Hospital Course: Patient presented with hypotension. This was related to volume depletion and overmedication. Patient seen and evaluated by Cardiology. Cardiology recommended to discontinue ARIANNA-inhibitor. Patient also found to have left upper lobe pneumonia. Patient was treated with IV antibiotic therapy. His condition improved. At discharge he is without significant shortness of breath. Patient will continue with antibiotic therapy Augmentin 500 mg twice daily for 7 days. Recommend recheck chest x-ray in 2-4 weeks to monitor resolution. Recommend follow up with PCP in 1-2 weeks to follow up this hospitalization. Patient with history of hypertension. Medications have been adjusted as recommended by Cardiology. At discharge he will continue with medication metoprolol 25 mg 1 pill twice daily. Please note medication-lisinopril has been discontinued. He will need to monitors blood pressures daily. He will hold medication-metoprolol if blood pressure less than 120 systolic. Recommend to maintain blood pressures less 150/80. Further adjustment can be done by his PCP or cardiology. Patient reported diarrhea. This resolved. At discharge he will continue with lactobacillus 3 times a day. Patient with history of CAD and prior CABG and hyperlipidemia. Patient will continue with aspirin 325 mg daily and Lipitor 80 mg. Cardiology recommended to discontinue Plavix. Patient with history of right neck mass. Patient recently seen by ENT with biopsy. Biopsy shows squamous cell carcinoma. Case discussed at length with ENT. Patient will need a follow up with ENT to further address. Primary cancers still unknown. Patient with hypomagnesia. At discharge he will continue with magnesium 400 mg daily. Recommend to recheck magnesium level in 1 week to monitors progress. Vital Signs/Physical Exam: Temp Pulse Resp BP Pulse Ox 97.2 F 67 17 101/62 99 11/23/19 12:00 11/23/19 12:00 11/23/19 12:00 11/23/19 12:00 11/23/19 12:00 General: Alert, In no apparent distress, Oriented x3, Cooperative HEENT: Atraumatic Neck: Other (Mass to the right neck) Respiratory: Clear to auscultation bilaterally, Normal air movement Cardiovascular: Normal pulses, Regular rate/rhythm Gastrointestinal: Normal bowel sounds, Soft and benign, Non-distended, No tenderness, No masses, No rebound, No guarding Musculoskeletal: No erythema, No tenderness, No warmth Integumentary: No tenderness/swelling, No erythema, No warmth, No cyanosis Neurological: Normal speech, Normal strength at 5/5 x4 extr, Normal tone, Normal affect Laboratory Data at Discharge: WBC 6.5 K/uL (4.3-10.9) 11/23/19 05:50 Hgb 11.0 g/dL (13.6-17.9) L 11/23/19 05:50 Hct 32.2 % (39.6-49.0) L 11/23/19 05:50 Plt Count 176 K/uL (152-406) 11/23/19 05:50 Sodium 130 mmol/L (136-145) L 11/23/19 05:44 Potassium 3.9 mmol/L (3.5-5.1) 11/23/19 05:44 BUN 6 mg/dL (7-18) L 11/23/19 05:44 Creatinine 0.55 mg/dL (0.55-1.3) 11/23/19 05:44 Glucose 95 mg/dL (74-106) 11/23/19 05:44 Magnesium 1.4 mg/dL (1.8-2.4) L* 11/23/19 05:44 Total Bilirubin 0.4 mg/dL (0.2-1.0) 11/21/19 11:18 AST 35 U/L (15-37) 11/21/19 11:18 ALT 24 U/L (12-78) 11/21/19 11:18 Alkaline Phosphatase 89 U/L (45-117) 11/21/19 11:18 Triglycerides 109 mg/dL (<150) 11/22/19 03:46 Cholesterol 92 mg/dL (<200) 11/22/19 03:46 HDL Cholesterol 48 mg/dL (40-60) 11/22/19 03:46 Cholesterol/HDL Ratio 1.92 11/22/19 03:46 Lipase 121 U/L (73-393) 11/23/19 05:44 Home Medications: Aspirin [Aspirin EC 325 MG] 325 mg PO DAILY 11/19/19 Atorvastatin Calcium [Lipitor] 80 mg PO DAILY 11/19/19 Amox/Clavulanate [Augmentin 500-125 mg Tab] 500 mg PO BID #14 tab 11/23/19 Lactobacillus Acidophilus [Acidophilus Lactobacilli] 1 each PO TID #90 capsule 11/23/19 Magnesium Oxide 400 mg PO DAILY #30 tablet 11/23/19 Metoprolol Tartrate [Lopressor*] 25 mg PO BID tab 11/23/19 New Medications: Amox/Clavulanate [Augmentin 500-125 mg Tab] 500 mg PO BID #14 tab Lactobacillus Acidophilus [Acidophilus Lactobacilli] 1 each PO TID #90 capsule Magnesium Oxide 400 mg PO DAILY #30 tablet Patient Discharge Instructions: 1. Patient will need a follow up with his PCP in 1 week to follow up this hospitalization. 2. Patient presented with hypotension. This was related to volume depletion and overmedication. Patient seen and evaluated by Cardiology. Cardiology recommended to discontinue ARIANNA- inhibitor. Patient also found to have left upper lobe pneumonia. Patient was treated with IV antibiotic therapy. His condition improved. At discharge he is without significant shortness of breath. Patient will continue with antibiotic therapy Augmentin 500 mg twice daily for 7 days. Recommend recheck chest x-ray in 2-4 weeks to monitor resolution. Recommend follow up with PCP in 1-2 weeks to follow up this hospitalization. 3. Patient with history of hypertension. Medications have been adjusted as recommended by Cardiology. At discharge he will continue with medication metoprolol 50 mg 1 pill twice daily. Please note medication-lisinopril has been discontinued. Recommend to maintain blood pressures less 150/80. Further adjustment can be done by his PCP or cardiology. 4. Patient reported diarrhea. This resolved. At discharge he will continue with lactobacillus 3 times a day. 5. Patient with history of CAD and prior CABG and hyperlipidemia. Patient will continue with aspirin 325 mg daily and Lipitor 80 mg. Cardiology recommended to discontinue Plavix. 6. Patient with history of right neck mass. Patient recently seen by ENT with biopsy. Biopsy shows squamous cell carcinoma. Case discussed at length with ENT. Patient will need a follow up with ENT to further address. Primary cancers still unknown. 7. Patient with hypomagnesia. At discharge he will continue with magnesium 400 mg daily. Recommend to recheck magnesium level in 1 week to monitors progress. Diet: AHA Activity: Ad lesley Time spent managing pt's care (in minutes): 55
== END 2019-11-23 14:38 | disposition home or self-care (01) | DRG 312 ==
LOC: ER 15:31 → ERHOLD 18:16 → 4TH 19:49 → OBSVTOIN 11-19 11:24
PROVIDERS: ADMIT Hospitalist; ATTEND Hospitalist
DX: I95.2 Hypotension due to drugs (principal); J18.9 Pneumonia, unspecified organism; K85.90 Acute pancreatitis without necrosis or infection, unspecified; E87.1 Hypo-osmolality and hyponatremia; E46 Unspecified protein-calorie malnutrition; E86.9 Volume depletion, unspecified; I10 Essential (primary) hypertension; R19.7 Diarrhea, unspecified; I25.10 Atherosclerotic heart disease of native coronary artery without angina pectoris; C44.42 Squamous cell carcinoma of skin of scalp and neck; E83.42 Hypomagnesemia; T46.5X5A Adverse effect of other antihypertensive drugs, initial encounter; Y92.009 Unspecified place in unspecified non-institutional (private) residence as the place of occurrence of the external cause; R62.7 Adult failure to thrive; Z68.30 Body mass index [BMI] 30.0-30.9, adult; Z87.891 Personal history of nicotine dependence; Z95.1 Presence of aortocoronary bypass graft
CPT/HCPCS: 36415; 71045; 71046; 71275; 74176; 80048; 80053; 80061; 80076; 81003; 81015; 82570; 83690; 83735; 83880; 83930; 83935; 84132; 84300; 85025; 87040; 87045; 87046; 87177; 87209; 87324; 87449; 93005; 93306; 96361; 96365; 97112; 97116; 97161; 97530; 99285; G0378; J0456; J0696; J1650; J2270; J2405; J3475; J7030; J7040; J7042; Q9967

== ENCOUNTER 2019-12-08 14:08 | Inpatient (IN) | payer OTHER ==
[2019-12-08 15:21] LABS: Protime INR 1.08
[2019-12-08] MEDS ORDERED: MECLIZINE HCL 12.5 MG TAB ONE (15:22)
[2019-12-08 15:23] LABS: Absolute Lymphocytes (CBC) 0.7 K/uL (0.7-4.9); Basophils % 0.6 % (0-1.3); Hematocrit 31.1 % (39.6-49.0); Lymphocytes % 14.1 % (15.3-44.8); MPV 8.1 fL (7.6-11.3); RBC Red Blood Cell Count 3.71 M/uL (4.33-5.43)
[2019-12-08 15:35] LABS: ALT/SGPT 25 U/L (12-78); AST/SGOT 37 U/L (15-37); Albumin 3.3 g/dL (3.4-5.0); Alkaline Phosphatase 156 U/L (45-117); BUN Blood Urea Nitrogen 10 mg/dL (7-18); Bicarbonate 28 mmol/L (21-32); Bilirubin Direct 0.2 mg/dL (0-0.2); Bilirubin Total 0.5 mg/dL (0.2-1.0); Glucose Level 82 mg/dL (74-106); Magnesium 1.7 mg/dL (1.8-2.4); NT PRO-BNP 707 pg/mL (<125); Potassium 3.6 mmol/L (3.5-5.1); Protein, Total 6.7 g/dL (6.4-8.2); Sodium Level 131 mmol/L (136-145); Troponin (Emerg Dept Use Only) < 0.02 ng/mL (0.0-0.045)
--- NOTE | 2019-12-08 16:02 | RAD REPORT ---
EXAM DESCRIPTION: RAD - Chest Single View - 12/08/2019 2:56 pm CLINICAL HISTORY: weakness Chest pain. COMPARISON: Chest Pa And Lat (2 Views) dated 11/21/2019; Chest Single View dated 11/18/2019; CHEST SIN GLE VIEW dated 05/11/2013; CHEST SINGLE VIEW dated 05/10/2013; Ct Skull/Thigh dated 12/02/2019; Abdomen Pelvis Wo Contrast dated 11/20/2019; Chest For Pe Angio dated 11/18/2019 FINDINGS: Portable technique limits examination quality. Mild interstitial pulmonary edema seen. The heart is upper limit of normal in size with sternotomy wi res present. No displaced fractures.
--- NOTE | 2019-12-08 16:25 | RAD REPORT ---
EXAM DESCRIPTION: CT - Head Brain Wo Cont - 12/08/2019 4:05 pm CLINICAL HISTORY: DIZZINESS Headache, drowsiness COMPARISON: Head angio dated 12/08/2019; Neck Angio dated 12/08/2019 TECHNIQUE: All CT scans are performed using dose optimization technique as appropriate and may inclu de automated exposure control or mA/KV adjustment according to patient size. FINDINGS: No intracranial hemorrhage, hydrocephalus or extra-axial fluid collection.No areas of brai n edema or evidence of midline shift. The paranasal sinuses and mastoids are clear. The calvarium is intact. Vertebral atherosclerosis. IMPRESSION: No acute intracranial abnormality.
--- NOTE | 2019-12-08 16:27 | RAD REPORT ---
EXAM DESCRIPTION: CT - Head angio - 12/08/2019 4:08 pm CLINICAL HISTORY: DIZZINESS Headache, drowsiness COMPARISON: No comparisons TECHNIQUE: CT angiography of the head was performed with MIPs. All CT scans are performed using dose optimization technique as appropriate and may include automated exposure control or mA/KV adjustment according to patient size. FINDINGS: No evidence of aneurysm is detected. No flow-limiting stenosis or vascular malformation id entified. Antegrade flow is seen in the vertebral arteries. Vertebral atherosclerosis is present. The visualized dural venous sinuses are patent. IMPRESSION: No significant flow abnormality is detected.
--- NOTE | 2019-12-08 16:36 | RAD REPORT ---
EXAM DESCRIPTION: CT - Neck Angio - 12/08/2019 4:06 pm CLINICAL HISTORY: dizziness Headache, drowsiness COMPARISON: No comparisons TECHNIQUE: CT angiography of the neck vessels was performed with MIPs. All CT scans are performed using dose optimization technique as appropriate and may include automated exposure control or mA/KV adjustment according to patient size. FINDINGS: A left aortic arch is identified with normal three vessel configuration of the great vesse ls. A large soft tissue mass is present at the base of the neck on the right measuring 6.0 x 6.0 cm. This exerts mass effect on the right common carotid artery which is deviated medially. Right to left leann ation of the trachea is also present. Mass effect on the right lobe of the thyroid also seen. No inte rruption of flow is seen in either common carotid artery, either vertebral artery or either internal carotid artery. Heavy atherosclerosis is present involving both carotid bulbs with estimated stenosis on the right of 90-95% based on NASCET criteria. Atherosclerotic stenosis of the left carotid bulb estimated at 70-9 0% based on NASCET criteria. Normal flow is seen within both vertebral arteries. Moderate vertebral atherosclerosis is seen. Prominent 16 mm pretracheal lymph node is present. Areas of nodularity are present in both lungs, inc ompletely assessed. IMPRESSION: Significant atherosclerotic carotid bulb stenosis is present bilaterally, worse on the r ight as detailed. Large 6 cm soft tissue mass along the right base of the neck with mass effect as described.
[2019-12-08] MEDS ORDERED: ONDANSETRON 4 MG/2 ML VIAL IV PRN (18:23)
[2019-12-08] MEDS ORDERED: ACETAMINOPHEN 500 MG TAB PO PRN (18:23)
--- NOTE | 2019-12-08 18:31 | ER ---
Nurse's Notes [facility] Name: Bernard Joiner Jr Age: 59 yrs Sex: Male : 1960 Arrival Date: 12/08/2019 Time: 14:12 Bed 19 Private MD: Reginaldo Frey H Diagnosis: Dizziness and giddiness;Localized swelling, mass and lump, neck Presentation: 12/08 14:28 Presenting complaint: Patient states: dizziness for three days, started after my amoxicillin ran out. Dr. Zelaya wont call in a refill. two weeks ago I was admitted, then herrea took a mass off my neck. after that they changed my meds and I don't feel good. I have not gotten in to my pcp, and no one will call in more meds for me. Transition of care: patient was not received from another setting of care. Onset of symptoms was December 04, 2019. Risk Assessment: Do you want to hurt yourself or someone else? Patient reports no desire to harm self or others. Initial Sepsis Screen: Does the patient meet any 2 criteria? No. Patient's initial sepsis screen is negative. Does the patient have a suspected source of infection? No. Patient's initial sepsis screen is negative. Care prior to arrival: None. 14:28 Method Of Arrival: Ambulatory 14:28 Acuity: CHARLIE 3 Triage Assessment: 14:39 General: Appears in no apparent distress. comfortable, Behavior is calm, cooperative, ch appropriate for age. Pain: Complains of pain in neck Pain currently is 2 out of 10 on a pain scale. Pain began gradually, 2-3 days ago. EENT: Reports nasal congestion pt reports dizziness with movement of his head. Neuro: No deficits noted. Respiratory: Airway is patent Trachea midline Respiratory effort is even, unlabored, Breath sounds are clear bilaterally. GI: Reports nausea. : No signs and/or symptoms were reported regarding the genitourinary system. Derm: Skin is pink, warm \T\ dry. Historical: - Allergies: 14:39 No Known Allergies; ch - PMHx: 14:39 Hyperlipidemia; Hypertension; LYMPHOMA; hypotension; ch - PSHx: 14:39 lymphoma removal in the neck area; Heart stents; open heart surgery; ch - Immunization history:: Adult Immunizations up to date. - Coronavirus screen:: The patient has NOT traveled to [place], [place], or [place] in the past 14 days. The patient has NOT had contact with known/suspected case of Coronavirus?. - Social history:: Smoking status: Patient reports the use of cigarette tobacco products, denies chronic smoking, but will smoke occasionally, Patient/guardian denies using alcohol, street drugs. - Ebola Screening: : Patient negative for fever greater than or equal to 101.5 degrees Fahrenheit, and additional compatible Ebola Virus Disease symptoms Patient denies exposure to infectious person Patient denies travel to an Ebola-affected area in the 21 days before illness onset No symptoms or risks identified at this time. Screenin:41 Abuse screen: Denies threats or abuse. Denies injuries from another. Nutritional ch screening: No deficits noted. Tuberculosis screening: No symptoms or risk factors identified. Fall Risk None identified. Assessment: 14:41 Reassessment: Patient appears in no apparent distress at this time. Patient and/or ch family updated on plan of care and expected duration. Pain level reassessed. Patient is alert, oriented x 3, equal unlabored respirations, skin warm/dry/pink. 17:03 Reassessment: Patient appears in no apparent distress at this time. Patient and/or [facility] family updated on plan of care and expected duration. Pain level reassessed. Patient is alert, oriented x 3, equal unlabored respirations, skin warm/dry/pink. Vital Signs: 14:39 BP 114 / 69; Pulse 81; Resp 16; Temp 98.2; Pulse Ox 99% on R/A; Weight 86.18 kg; Height 5 ft. 9 in. (175.26 cm); Pain 2/10; 17:03 BP 123 / 74; Pulse 86; Resp 18; Pulse Ox 100% on R/A; mg2 18:00 BP 120 / 78; Pulse 78; Resp 18; Pulse Ox 99% on R/A; mg2 19:30 BP 106 / 62; Pulse 86; Resp 18; Temp 98; Pulse Ox 96% on R/A; mg2 14:39 Body Mass Index 28.06 (86.18 kg, 175.26 cm) ED Course: 14:12 Patient arrived in ED. mr 14:13 Reginaldo Frey DO is Private Physician. mr 14:20 Kleber Montes De Oca PA is PHCP. [facility] 14:20 Ricco Curtis MD is Attending Physician. [facility] 14:28 Zoraida Awan, RN is Primary Nurse. 14:32 Triage completed. 14:39 Arm band placed on left wrist. Patient placed in an exam room, on a stretcher, on pulse oximetry. 14:41 Patient has correct armband on for positive identification. Bed in low position. Call light in reach. Side rails up X2. Adult w/ patient. radiation monitor on. Pulse ox on. NIBP on. 14:41 No provider procedures requiring assistance completed. 15:01 Initial lab(s) drawn, by ky, sent to lab. Inserted saline lock: 22 gauge in right lt1 antecubital area, using aseptic technique. 15:57 CT completed. Patient tolerated procedure well. Patient moved to CT via wheelchair. al Patient moved back from [place]. 18:28 Kisha Rodgers MD is Hospitalizing Provider. [facility] 19:49 Patient admitted, IV remains in place. mg2 Administered Medications: 15:21 Drug: Meclizine 25 mg Route: PO; 16:46 Follow up: Response: No adverse reaction mg2 Outcome: 18:29 Decision to Hospitalize by Provider. [facility] 19:50 Admitted to Med/surg accompanied by tech, via wheelchair, room 229, with chart, Report mg2 called to PASHA Berman 19:50 Condition: stable 19:50 Instructed on the need for admit, Demonstrated understanding of instructions. 20:12 Patient left the ED. mg2 Signatures: Zoraida Awan, RN RN Kleber Montes De Oca PA PA [facility] PotterJennifer kaur Nathan Milton Coronado RN RN [facility] Sigrid Jacob lt1 Corrections: (The following items were deleted from the chart) 19:51 19:34 BP 122 / 78; Pulse 78bpm; Resp 18bpm; Pulse Ox 99% RA; mg2 mg2
--- NOTE | 2019-12-08 18:31 | EDPHYS ---
Physician Documentation [facility] Name: Bernard Joiner Jr Age: 59 yrs Sex: Male : 1960 Arrival Date: 12/08/2019 Time: 14:12 Bed 19 Private MD: Reginaldo Frey H ED Physician Ricco Curtis HPI: 12/08 14:22 This 59 yrs old Male presents to ER via Ambulatory with complaints of jmm Dizziness. 14:22 The patient presents with lightheadedness. Onset: The symptoms/episode began/occurred jmm gradually, 3 day(s) ago. Modifying factors: The symptoms are alleviated by holding head still, the symptoms are aggravated by movement of head. Associated signs and symptoms: Pertinent negatives: chest pain. This is a 59 year old male with a history of hlp htn that presents to the ED with complaints of dizziness, lightheadedness, weakness beginning 3 days ago. Patient states having a mass taken off his neck approx 2 weeks ago. Patient states he became dizzy at the end of his course of abx. Symptoms are worsened with movement of his head. Denies vomiting. . Historical: - Allergies: 14:39 No Known Allergies; ch - PMHx: 14:39 Hyperlipidemia; Hypertension; LYMPHOMA; hypotension; ch - PSHx: 14:39 lymphoma removal in the neck area; Heart stents; open heart surgery; ch - Immunization history:: Adult Immunizations up to date. - Coronavirus screen:: The patient has NOT traveled to [place], [place], or [place] in the past 14 days. The patient has NOT had contact with known/suspected case of Coronavirus?. - Social history:: Smoking status: Patient reports the use of cigarette tobacco products, denies chronic smoking, but will smoke occasionally, Patient/guardian denies using alcohol, street drugs. - Ebola Screening: : Patient negative for fever greater than or equal to 101.5 degrees Fahrenheit, and additional compatible Ebola Virus Disease symptoms Patient denies exposure to infectious person Patient denies travel to an Ebola-affected area in the 21 days before illness onset No symptoms or risks identified at this time. ROS: 14:22 Constitutional: Negative for fever, chills, and weight loss, Cardiovascular: Negative jmm for chest pain, palpitations, and edema, Respiratory: Negative for shortness of breath, cough, wheezing, and pleuritic chest pain, Abdomen/GI: Negative for abdominal pain, nausea, vomiting, diarrhea, and constipation. 14:22 Neuro: Positive for dizziness, weakness. 14:22 All other systems are negative. Exam: 14:22 Constitutional: This is a well developed, well nourished patient who is awake, alert, jmm and in no acute distress. Head/Face: atraumatic. Eyes: EOMI, no conjunctival erythema appreciated ENT: Moist Mucus Membranes Neck: Trachea midline, Supple Chest/axilla: Normal chest wall appearance and motion. Cardiovascular: Regular rate and rhythm. No edema appreciated Respiratory: Normal respirations, no respiratory distress appreciated Abdomen/GI: Non distended, soft Back: Normal ROM Skin: General appearance color normal MS/ Extremity: Moves all extremities, no obvious deformities appreciated, no edema noted to the lower extremities Neuro: Awake and alert, normal gait Psych: Behavior is normal, Mood is normal, Patient is cooperative and pleasant 14:22 Neuro: Orientation: is normal, Mentation: is normal, Memory: is normal, Cerebellar function: normal finger to nose testing, heel to perkins testing is normal. 14:22 Psych: Behavior/mood is pleasant, cooperative. Vital Signs: 14:39 BP 114 / 69; Pulse 81; Resp 16; Temp 98.2; Pulse Ox 99% on R/A; Weight 86.18 kg; Height ch 5 ft. 9 in. (175.26 cm); Pain 2/10; 17:03 BP 123 / 74; Pulse 86; Resp 18; Pulse Ox 100% on R/A; mg2 18:00 BP 120 / 78; Pulse 78; Resp 18; Pulse Ox 99% on R/A; mg2 19:30 BP 106 / 62; Pulse 86; Resp 18; Temp 98; Pulse Ox 96% on R/A; mg2 14:39 Body Mass Index 28.06 (86.18 kg, 175.26 cm) [facility]: 14:22 Patient medically screened. [facility] 18:12 Data reviewed: vital signs, nurses notes. Counseling: I had a detailed discussion with jelani the patient and/or guardian regarding: the historical points, exam findings, and any diagnostic results supporting the discharge/admit diagnosis, lab results, radiology results. ED course: I discussed the patient with Dr. Rodgers whom accepted admission. I discussed the patient with Dr. Burt whom will consult on admission. I discussed the patient with Dr. Gaspar whom will be available for consultation. . 12/08 14:30 Order name: Basic Metabolic Panel [facility] 12/08 14:30 Order name: CBC with Diff [facility] 12/08 14:30 Order name: LFT's [facility] 12/08 14:30 Order name: Magnesium [facility] 12/08 14:30 Order name: NT PRO-BNP [facility] 12/08 14:30 Order name: PT-INR [facility] 12/08 14:30 Order name: Troponin (emerg Dept Use Only) [facility] 12/08 15:35 Order name: Basic Metabolic Panel; Complete Time: 15:37 [facility] 12/08 15:35 Order name: Liver (Hepatic) Function; Complete Time: 15:37 [facility] 12/08 15:35 Order name: Troponin (Emerg Dept Use Only); Complete Time: 15:37 [facility] 12/08 15:35 Order name: NT PRO-BNP; Complete Time: 15:37 [facility] 12/08 15:35 Order name: Magnesium; Complete Time: 15:37 [facility] 12/08 15:37 Order name: CBC with Automated Diff; Complete Time: 15:37 [facility] 12/08 15:37 Order name: Protime (+INR); Complete Time: 15:37 [facility] 12/08 14:30 Order name: XRAY Chest (1 view) [facility] 12/08 14:30 Order name: EKG; Complete Time: 14:34 [facility] 12/08 14:30 Order name: Cardiac monitoring; Complete Time: 15:02 [facility] 12/08 14:30 Order name: EKG - Nurse/Tech; Complete Time: 15:02 [facility] 12/08 14:30 Order name: IV Saline Lock; Complete Time: 15:02 [facility] 12/08 14:30 Order name: Labs collected and sent; Complete Time: 15:02 [facility] 12/08 14:30 Order name: O2 Per Protocol; Complete Time: 15:02 [facility] 12/08 14:30 Order name: O2 Sat Monitoring; Complete Time: 15:02 [facility] 12/08 14:30 Order name: CT Head Brain wo Cont [facility] 12/08 14:34 Order name: CT Neck Angio [facility] 12/08 14:34 Order name: CT Head Angio [facility] 12/08 16:10 Order name: RAD; Complete Time: 16:10 [facility] 12/08 16:28 Order name: CT; Complete Time: 16:32 [facility] 12/08 16:33 Order name: CT; Complete Time: 16:35 [facility] 12/08 16:38 Order name: CT; Complete Time: 16:38 [facility] Administered Medications: 15:21 Drug: Meclizine 25 mg Route: PO; 16:46 Follow up: Response: No adverse reaction mg2 Disposition: 12/09 07:38 Co-signature as Attending Physician, Ricco Curtis MD. rn Disposition: 12/08/19 18:29 Hospitalization ordered by Kisha Rodgers for Observation. Preliminary diagnosis are Dizziness and giddiness, Localized swelling, mass and lump, neck. - Bed requested for Telemetry/MedSurg (observation). - Status is Observation. mg2 - Condition is Stable. - Problem is new. - Symptoms are unchanged. Signatures: Dispatcher [employer] [facility] Zoraida Awan, PASHA RN Kleber Montes De Oca PA PA [facility] Ricco Curtis MD MD rn Lasagna, Tonya, RN RN tl1 Milton Wilson RN RN mg2 Corrections: (The following items were deleted from the chart) 12/08 19:06 18:29 Hospitalization Ordered by Kisha Rodgers MD for Observation. Preliminary tl1 diagnosis is Dizziness and giddiness; Localized swelling, mass and lump, neck. Bed requested for Telemetry/MedSurg (observation). Status is Observation. Condition is Stable. Problem is new. Symptoms are unchanged. [facility] 20:12 19:06 12/08/2019 18:29 Hospitalization Ordered by Kisha Rodgers MD for Observation. mg2 Preliminary diagnosis is Dizziness and giddiness; Localized swelling, mass and lump, neck. Bed requested for Telemetry/MedSurg (observation). Status is Observation. Condition is Stable. Problem is new. Symptoms are unchanged. tl1
[2019-12-08] MEDS: NA CHLORIDE 0.9% 1,000 ML IV SCH ×2 (19:00→21:37)
[2019-12-08] MEDS ORDERED: ACETAMINOPHEN 500 MG TAB ONE (19:45)
[2019-12-08 20:14] VITALS: BMI 26.7
--- NOTE | 2019-12-08 20:20 | P.HP ---
Certification for Inpatient Patient admitted to: Observation With expected LOS: <2 Midnights Practitioner: I am a practitioner with admitting privileges, knowledge of patient current condition, hospital course, and medical plan of care. 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 Patient reports dizziness worse with sitting and standing and moving his head. He denied any headache. He denied any palpitation. His blood pressure medications were adjusted after previous hospitalization for hypotension. His blood pressure in the ED was still in the low 100. CT head showed no acute disease. CTA neck reported the right neck mass is exerting a pressure effect on his carotid arteries and thyroid gland. He also has significant atherosclerotic disease in his carotid arteries. Patient is hospitalized for stroke rule-out. He will also need to be seen by radiation oncology to evaluate for radiation to shrink the mass. Allergies No Known Allergies Allergy (Verified 11/11/19 13:47) Home Medications: Atorvastatin Calcium [Lipitor] 80 mg PO DAILY 11/19/19 Amox/Clavulanate [Augmentin 500-125 mg Tab*] 500 mg PO BID #14 tab 11/23/19 Lactobacillus Acidophilus [Acidophilus Lactobacilli] 1 each PO TID #90 capsule 11/23/19 Magnesium Oxide 400 mg PO DAILY #30 tablet 11/23/19 Metoprolol Tartrate [Lopressor*] 25 mg PO BID tab 11/23/19 Aspirin [Aspirin EC 81 MG] 81 mg PO DAILY 12/09/19 Meclizine HCl 25 mg PO TID PRN #30 tablet 12/09/19 - Past Medical/Surgical History Diabetic: No -: htn -: high cholestrol -: angina -: R neck mass -: heart cath 2002 -: s/p excisional biopsy -: CABG - Family History Father -: Diabetes Mother -: Cancer - Social History Alcohol use: Yes CD- Drugs: No Caffeine use: Yes Review of Systems Other: General: No fever, no malaise, no unintentional weight loss. Eyes: No eye discharge, Respiratory: No cough, no shortness of breath. CVS: No chest pain, no palpitation. GI: No abdominal pain, no nausea no vomit, no constipation, no diarrhea. Genitourinary: No dysuria, no urinary frequency, no incontinence, no hematuria. Musculoskeletal: No joint pains, or joint swelling, no gait instability. Neurology: No headache, no asymmetric weakness, no problem with swallowing. Except as documented, all other systems reviewed and negative. Physical Examination - Physical Exam General: Alert, In no apparent distress, Oriented x3 HEENT: Atraumatic, PERRLA, Mucous membr. moist/pink Neck: Supple, Other (Right neck mass) Respiratory: Clear to auscultation bilaterally, Normal air movement Cardiovascular: No edema, Regular rate/rhythm, Normal S1 S2 Capillary refill: <2 Seconds Gastrointestinal: Normal bowel sounds, Soft and benign, Non-distended, No tenderness Musculoskeletal: No swelling, No erythema Integumentary: Other (Erythema-right neck area) Neurological: Normal speech, Normal strength at 5/5 x4 extr, Cranial nerves 3- 12 intact - Studies Laboratory Data (last 24 hrs) 12/08/19 14:58: PT 12.7 H, INR 1.08 12/08/19 14:58: WBC 5.2, Hgb 10.6 L, Hct 31.1 L, Plt Count 233 12/08/19 14:58: Sodium 131 L, Potassium 3.6, BUN 10, Creatinine 0.53 L, Glucose 82, Magnesium 1.7 L, Total Bilirubin 0.5, AST 37, ALT 25, Alkaline Phosphatase 156 H Assessment and Plan - Problems (Diagnosis) (1) Squamous cell carcinoma of neck Status: Acute (2) Dizziness Status: Acute (3) Carotid artery disease Status: Acute (4) History of coronary artery disease Status: Acute (5) Anemia Status: Acute - Plan Place under observation Check orthostatics vitals Metoprolol with holding parameters. Continue aspirin and Lipitor Consult radiation oncology to evaluate. Consult hematology-oncology - Advance Directives Does patient have a Living Will: No Does patient have a Durable POA for Healthcare: No
[2019-12-08] MEDS: ATORVASTATIN 80 MG TAB PO SCH (21:16)
[2019-12-08] MEDS: MORPHINE 2 MG/ML SYR IV PRN (21:29)
[2019-12-09] MEDS: MORPHINE 2 MG/ML SYR IV PRN ×2 (03:35→09:05)
[2019-12-09 06:35] LABS: Absolute Lymphocytes (CBC) 0.8 K/uL (0.7-4.9); Basophils % 0.5 % (0-1.3); Hematocrit 27.3 % (39.6-49.0); Lymphocytes % 17.5 % (15.3-44.8); MPV 8.3 fL (7.6-11.3); RBC Red Blood Cell Count 3.31 M/uL (4.33-5.43)
[2019-12-09 06:57] LABS: ALT/SGPT 20 U/L (12-78); AST/SGOT 34 U/L (15-37); Albumin 2.7 g/dL (3.4-5.0); Alkaline Phosphatase 134 U/L (45-117); BUN Blood Urea Nitrogen 7 mg/dL (7-18); Bicarbonate 27 mmol/L (21-32); Bilirubin Total 0.5 mg/dL (0.2-1.0); Glucose Level 76 mg/dL (74-106); Potassium 3.5 mmol/L (3.5-5.1); Protein, Total 5.6 g/dL (6.4-8.2); Sodium Level 134 mmol/L (136-145)
[2019-12-09] MEDS ORDERED: PNEUMOCOCCAL VACCINE 0.5 ML IMVAC ONE (08:00)
[2019-12-09] MEDS: NA CHLORIDE 0.9% 1,000 ML IV SCH (08:20)
[2019-12-09 08:43] VITALS: BP 119/67; TEMP 97.5
[2019-12-09] MEDS: ATORVASTATIN 80 MG TAB PO SCH (08:57)
[2019-12-09] MEDS ORDERED: HOME MED 1 EA UNK (Aspirin [Aspirin Ec 325 Mg] 325 MG) PO SCH (09:00)
[2019-12-09] MEDS ORDERED: ASPIRIN EC 325 MG TABLET PO SCH (09:00)
--- NOTE | 2019-12-09 09:51 | P.DS ---
Admission Date: 12/08/19 Discharge Date: 12/09/19 Disposition: DC HOME/HOME HEALTH CARE Discharge Condition: FAIR Reason for Admission: Dizziness - Problems (1) Anemia Current Visit: Yes Status: Acute (2) Carotid artery disease Current Visit: Yes Status: Acute (3) Dizziness Current Visit: Yes Status: Acute (4) History of coronary artery disease Current Visit: Yes Status: Acute (5) Squamous cell carcinoma of neck Current Visit: Yes Status: Acute Brief History of Present Illness: History of Present Illness: 59-year-old gentleman, recently diagnosed with a malignant right neck mass, intra-abdominal malignant mass, biopsy of the neck mass showing squamous cell carcinoma, history of CAD status post CABG presented to the ED with a complaint of dizziness which started 3 days ago. Patient reports in worse with sitting and standing and moving his head. He denied any headache. He denied any palpitation. His blood pressure medications were adjusted after hospitalization for hypotension. His blood pressure in the ED was in the low 100. CT head showed no acute disease. CTA neck reported the right neck mass is exerting a pressure effect on his carotid arteries and thyroid gland. He also has significant atherosclerotic disease in his carotid arteries. Patient is hospitalized for stroke rule-out. He will also need to be seen by radiation oncology to evaluate for radiation to shrink the mass. Hospital Course: Patient with recently diagnosed right neck mass with compression of the right external carotid and extending to devaiation of the esophagus and trachea d status was recent biopsy by ENT with possible squamous cell cancer , previously scheduled to see Oncology today. He was admitted yesterday for recurrent dizziness. Dizziness appears to be worse when patient is up walking. On admission was started on gentle IV fluids. He had a CTA as well as head CT done with noted compression of the right carotid by the mass . 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 On phone discussion with vascular surgery at [facility] recommend radiation to strength mass. He was also noted to have left carotid artery stenosis of more than 70%. Patient was admitted for oncology and radiation oncology evaluation however I discussed with Dr. Kc - Radiation Oncology and he will see patient in oncology clinic today and possibly initiate chemo with radiation therapy today at the [facility]. Patient is being discharged now to follow up with them in the next 1 hr. Patient was started empiric meclizine for the dizziness. Of note left carotid stenosis will discuss with patient especially possible etiologies also contributed to symptoms the patient feels he will wait on diet intervention now has vascular surgery feels it is due to right external compression Vital Signs/Physical Exam: Temp Pulse Resp BP Pulse Ox 97.5 F 83 17 119/67 95 12/09/19 08:00 12/09/19 08:00 12/09/19 08:00 12/09/19 08:00 12/09/19 08:00 General: Alert, In no apparent distress, Oriented x3 HEENT: Atraumatic, Normocephalic Neck: JVD not distended, No Thyromegaly, Other (erythema over right neck , palpable mass ) Respiratory: Clear to auscultation bilaterally, Normal air movement Cardiovascular: No edema, Normal pulses, Regular rate/rhythm, Normal S1 S2 Gastrointestinal: Normal bowel sounds, Soft and benign, Non-distended, No ascites, No tenderness Musculoskeletal: No clubbing, No swelling Neurological: Normal speech, Normal strength at 5/5 x4 extr, Normal tone Laboratory Data at Discharge: WBC 4.5 K/uL (4.3-10.9) 12/09/19 05:46 Hgb 9.4 g/dL (13.6-17.9) L 12/09/19 05:46 Hct 27.3 % (39.6-49.0) L 12/09/19 05:46 Plt Count 202 K/uL (152-406) 12/09/19 05:46 PT 12.7 SECONDS (9.5-12.5) H 12/08/19 14:58 INR 1.08 12/08/19 14:58 Sodium 134 mmol/L (136-145) L 12/09/19 05:46 Potassium 3.5 mmol/L (3.5-5.1) 12/09/19 05:46 BUN 7 mg/dL (7-18) 12/09/19 05:46 Creatinine 0.39 mg/dL (0.55-1.3) L 12/09/19 05:46 Glucose 76 mg/dL (74-106) 12/09/19 05:46 Magnesium 1.7 mg/dL (1.8-2.4) L 12/08/19 14:58 Total Bilirubin 0.5 mg/dL (0.2-1.0) 12/09/19 05:46 AST 34 U/L (15-37) 12/09/19 05:46 ALT 20 U/L (12-78) 12/09/19 05:46 Alkaline Phosphatase 134 U/L (45-117) H 12/09/19 05:46 Imagings Data: TECHNIQUE: CT angiography of the neck vessels was performed with MIPs. All CT scans are performed using dose optimization technique as appropriate and may include automated exposure control or mA/KV adjustment according to patient size. FINDINGS: A left aortic arch is identified with normal three vessel configuration of the great vessels. A large soft tissue mass is present at the base of the neck on the right measuring 6.0 x 6.0 cm. This exerts mass effect on the right common carotid artery which is deviated medially. Right to left deviation of the trachea is also present. Mass effect on the right lobe of the thyroid also seen. No interruption of flow is seen in either common carotid artery, either vertebral artery or either internal carotid artery. Heavy atherosclerosis is present involving both carotid bulbs with estimated stenosis on the right of 90-95% based on NASCET criteria. Atherosclerotic stenosis of the left carotid bulb estimated at 70-90% based on NASCET criteria. Normal flow is seen within both vertebral arteries. Moderate vertebral atherosclerosis is seen. Prominent 16 mm pretracheal lymph node is present. Areas of nodularity are present in both lungs, incompletely assessed. IMPRESSION: Significant atherosclerotic carotid bulb stenosis is present bilaterally, worse on the right as detailed. Large 6 cm soft tissue mass along the right base of the neck with mass effect as described. EXAM DESCRIPTION: CT - Head Brain Wo Cont - 12/08/2019 4:05 pm CLINICAL HISTORY: DIZZINESS Headache, drowsiness COMPARISON: Head angio dated 12/08/2019; Neck Angio dated 12/08/2019 TECHNIQUE: All CT scans are performed using dose optimization technique as appropriate and may include automated exposure control or mA/KV adjustment according to patient size. FINDINGS: No intracranial hemorrhage, hydrocephalus or extra-axial fluid collection.No areas of brain edema or evidence of midline shift. The paranasal sinuses and mastoids are clear. The calvarium is intact. Vertebral atherosclerosis. IMPRESSION: No acute intracranial abnormality. Home Medications: Atorvastatin Calcium [Lipitor] 80 mg PO DAILY 11/19/19 Amox/Clavulanate [Augmentin 500-125 mg Tab*] 500 mg PO BID #14 tab 11/23/19 Lactobacillus Acidophilus [Acidophilus Lactobacilli] 1 each PO TID #90 capsule 11/23/19 Magnesium Oxide 400 mg PO DAILY #30 tablet 11/23/19 Metoprolol Tartrate [Lopressor*] 25 mg PO BID tab 11/23/19 Aspirin [Aspirin EC 81 MG] 81 mg PO DAILY 12/09/19 Meclizine HCl 25 mg PO TID PRN #30 tablet 12/09/19 New Medications: Meclizine HCl 25 mg PO TID PRN #30 tablet PRN Reason: Dizziness Patient Discharge Instructions: - Discharge and go for oncology appt this am Diet: Regular Activity: Fall precautions Time spent managing pt's care (in minutes): 46
--- NOTE | 2019-12-09 10:26 | EKG ---
Test Date: 2019-12-08 Test Time: 14:43:39 Director Of Speech Pathology: ABIOLA MEASUREMENT RESULTS: Intervals: Rate: 79 VT: 152 QRSD: 96 QT: 360 QTc: 412 [place]: P: 51 VT: 152 QRS: 78 T: 203 INTERPRETIVE STATEMENTS: Normal sinus rhythm Possible Left atrial enlargement Cannot rule out Inferior infarct, age undetermined T wave abnormality, consider anterolateral ischemia Abnormal ECG Compared to ECG 11/18/2019 16:46:46 Myocardial infarct finding now present T-wave abnormality still present Possible ischemia still present Electronically Signed On 12-09-19 10:25:08 STAFF NUCLEAR MEDICINE TECHNOLOGIST by Hossein Kat
[2019-12-09 10:43] VITALS: O2SAT 95
[2019-12-09 12:20] LABS: RBC Red Blood Cell Count 3.37 M/uL (4.33-5.43)
[2019-12-09 12:36] LABS: C-Reactive Protein 23.9 mg/L (<3.00); Ferritin 756.6 ng/mL (26-388)
[2019-12-09] MEDS ORDERED: LACTOBACILLUS ACIDOPHILUS PO SCH (14:00)
[2019-12-09] MEDS ORDERED: METOPROLOL TAR 25 MG TAB PO SCH (21:00)
[2019-12-10] MEDS ORDERED: MAGNESIUM OXIDE 400 MG PO SCH (09:00)
[2019-12-10] MEDS ORDERED: ASPIRIN EC 81 MG TAB PO SCH (09:00)
== END 2019-12-09 09:58 | disposition home or self-care (01) | DRG 149 ==
LOC: ER 14:08 → ERHOLD 18:27 → 2ND 19:51
PROVIDERS: ADMIT Internal Medicine; ATTEND Internal Medicine
DX: R42 Dizziness and giddiness (principal); I25.10 Atherosclerotic heart disease of native coronary artery without angina pectoris; I77.89 Other specified disorders of arteries and arterioles; C76.0 Malignant neoplasm of head, face and neck; I10 Essential (primary) hypertension; D64.9 Anemia, unspecified; C76.2 Malignant neoplasm of abdomen; Z95.1 Presence of aortocoronary bypass graft
CPT/HCPCS: 36415; 70450; 70496; 70498; 71045; 80048; 80053; 80076; 82728; 83540; 83735; 83880; 84466; 84484; 85025; 85044; 85610; 86140; 93005; 99285; J2270; J7030; J8597; Q9967

== ENCOUNTER 2019-12-27 08:23 | Day surgery (SDC) | payer OTHER ==
[2019-12-27] MEDS ORDERED: Ringers Lactate 1,000 ML IV ONE (08:47)
[2019-12-27] MEDS ORDERED: CEFAZOLIN/SWI 1gm 1 GM/10 ML SYR ONE (08:47)
[2019-12-27 08:52] LABS: Absolute Lymphocytes (CBC) 0.8 K/uL (0.7-4.9); Basophils % 1.1 % (0-1.3); Hematocrit 30.1 % (39.6-49.0); Lymphocytes % 9.8 % (15.3-44.8); RBC Red Blood Cell Count 3.54 M/uL (4.33-5.43)
[2019-12-27 08:55] LABS: BUN Blood Urea Nitrogen 9 mg/dL (7-18); Bicarbonate 28 mmol/L (21-32); Glucose Level 86 mg/dL (74-106); Potassium 3.4 mmol/L (3.5-5.1); Sodium Level 130 mmol/L (136-145)
[2019-12-27] MEDS ORDERED: propofoL 200 MG/20 ML VIAL IV ONE (09:15)
[2019-12-27] MEDS ORDERED: FENTANYL CITR 100 MCG/2 ML ONE ×2 (09:16→11:09)
[2019-12-27] MEDS ORDERED: MIDAZOLAM HCL 2 MG/2 ML INJ ONE (09:16)
[2019-12-27] MEDS ORDERED: LIDOCAINE 2% MPF 5 ML VIAL ONE (09:17)
[2019-12-27] MEDS ORDERED: ONDANSETRON 4 MG/2 ML VIAL ONE ×2 (09:17→12:22)
[2019-12-27] MEDS ORDERED: HEPARIN 5000 UNIT/ML 1 ML VIAL ONE (09:19)
[2019-12-27] MEDS ORDERED: NS 0.9% VIAL 10 ML ONE ×2 (09:36→09:39)
[2019-12-27] MEDS ORDERED: BUPIVACAINE 0.5% PF 10 ML VIAL ONE (09:36)
[2019-12-27] MEDS ORDERED: GLYCOPYRROLATE 0.2 MG/ML SYR ONE (09:37)
[2019-12-27] MEDS ORDERED: ROCURONIUM 50 MG/5 ML VIAL IV ONE (09:38)
[2019-12-27] MEDS ORDERED: NEOSTIGMINE 1 MG/ML -5 ML ONE (09:39)
[2019-12-27] MEDS ORDERED: KETOROLAC 30 MG/ML INJ ONE (09:40)
[2019-12-27] MEDS: LIDOCAINE 1% MPF 5 ML VIAL ONE ×2 (09:43→10:20)
[2019-12-27] MEDS ORDERED: EPHEDRINE SULF 50 MG/ML VIAL ONE (11:25)
--- NOTE | 2019-12-27 11:31 | RAD REPORT ---
EXAM DESCRIPTION: RAD - Fluoroscopy <1 Hour - 12/27/2019 11:07 am CLINICAL HISTORY: Venous catheter insertion. PORT-A-CATH PLACEMENT COMPARISON: No comparisons FINDINGS: Fluoroscopy time: 1.1 minutes.
[2019-12-27] MEDS: HYDROMORPHONE HCL 1 MG/ML INJ ONE ×4 (12:21→12:50)
--- NOTE | 2019-12-27 13:01 | RAD REPORT ---
EXAM DESCRIPTION: Jayson Single View12/27/2019 12:53 pm CLINICAL HISTORY: Device placement/central venous catheter placement COMPARISON: November 2019 FINDINGS: Tip of a central venous catheter lies within the superior vena cava. A pneumothorax is not present. The heart is mildly enlarged. Postsurgical changes involve the chest. Pneumoperitoneum secondary to recent abdominal surgery Mild opacity mid to lower right lung IMPRESSION: Central venous catheter with its tips in the superior vena cava Mild opacity mid to lower right lung may represent a mild infiltrate or confluence of pulmonary vesse ls
[2019-12-27 13:03] VITALS: TEMP 98.2
--- NOTE | 2019-12-27 13:49 | OP ---
Date of Procedure: 12/27/2019 Surgeon: Valentin Hall MD Laboratory Apparatus Glass Grinder: ADRIANA Schwab Preoperative Diagnosis: Metastatic esophageal cancer. Postoperative Diagnosis: Metastatic esophageal cancer. Procedure: Left-sided Port-A-Cath, interpretation of intraoperative fluoroscopy, and open gastrostom y. Estimated Blood Loss: Minimal. Specimen: None. Findings: Normal anatomy. Anesthesia: General. Complications: None. Disposition: Patient tolerated the procedure in stable condition, taken to Recovery in good general condition. Procedure In Detail: Patient was brought to the OR and placed in supine position. General anesthesi a was begun. The patient was prepped and draped in the usual sterile fashion. An 18-gauge needle wa s used to access the left subclavian vein. The left neck and some hard enlarged lymph nodes and the anatomy was altered. I felt there was a high risk of complications in that area. So, I opted to try the left subclavian vein which was done with 18-gauge needle after Marcaine 0.5% was infiltrated and then once I was asked, guidewire was passed. Position was confirmed with fluoroscopy. A 3 cm count er incision was made and then tunneling device was used to tunnel the catheter between the 2 wounds. Seldinger technique was used. Tip of the catheter was placed in the SVC under fluoroscopy and then attached to the Port-A-Cath device. Port-A-Cath device was attached to the subcutaneous tissue with 3-0 Vicryl. Port-A-Cath device was flushed with heparin and packed with heparin with good blood flow return and subsequently 3-0 chromic was used to approximate the subcutaneous tissue and close the sk in. Sterile dressing was applied. Then, the patient's abdomen was prepped and draped in usual steri le fashion. Then, a small midline epigastric incision was made approximately 5 cm. Subcutaneous tis kong was divided. Fascia and plane were divided and through that incision, I could identify the stoma ch and the body of the stomach easily. Distal body was grasped with a [place] and then of course 2-0 silk pursestring suture was placed around that area and then 4 sutures from the peritoneal surface o f the stomach was also done in a clockwise fashion with 2-0 silk and then a small incision was made i n the left upper quadrant and a 26-Portuguese gastrostomy tube was placed and a gastrotomy was made and t ip of the balloon was tested prior to being inserted into the stomach and the balloon was inflated wi th 20 mL of saline and then all of the pursestring was tightened first and then 4 secured sutures to the stomach to the peritoneal surface were tacked. There was no evidence of bleeding or bowel injury appreciated. There was good flow and then midline fascia was closed with #2 nylon. Subcutaneous wo unds were irrigated. Bleeding controlled with cautery and a 3-0 chromic used to approximate the subc utaneous tissue and closed the skin. Sterile dressing was applied. Patient was awakened and taken t o Recovery in good general condition. /MODL Voice ID: [id number] Report ID: [id number]
[2019-12-27] MEDS ORDERED: HYDROCODONE/APAP 7.5/325 MG TAB ONE (13:51)
[2019-12-27 13:58] VITALS: BP 144/91; O2SAT 98
--- NOTE | 2019-12-27 14:15 | DS ---
Patient will go to Day Surgery, then home when stable. Disposition: Home. Condition: Stable. Discharge Instructions: Resume home medications and diet. Activity as tolerated. No heavy lifting. Follow up in my office in 2 weeks. Call for appointment. Follow up in the Cancer Center. Keep [facility]St[facility] on at all times. Patient has pain medication. Not to shower for at least 3 to 4 days and keep the splint on during that time. /MODL Voice ID: [id number] Report ID: [id number]
== END 2019-12-27 14:47 | disposition home or self-care (01) ==
LOC: OR 08:23
PROVIDERS: ATTEND Surgery
PROC: 0JH60WZ Insertion of Totally Implantable Vascular Access Device into Chest Subcutaneous Tissue and Fascia, Open Approach (ICD-10-PCS; principal; 2019-12-27 09:45)
PROC: 0DH60UZ Insertion of Feeding Device into Stomach, Open Approach (ICD-10-PCS; 2019-12-27 09:45)
DX: C15.9 Malignant neoplasm of esophagus, unspecified (principal); C79.9 Secondary malignant neoplasm of unspecified site; I10 Essential (primary) hypertension; F17.200 Nicotine dependence, unspecified, uncomplicated; Z95.1 Presence of aortocoronary bypass graft; Z95.5 Presence of coronary angioplasty implant and graft; Z80.0 Family history of malignant neoplasm of digestive organs; Z82.49 Family history of ischemic heart disease and other diseases of the circulatory system
CPT/HCPCS: 36561; 43830; 85025; 80048; 36415; 71045; 76000; J2704; J1644 ×2; J2250; J3010 ×2; J1170 ×2; J0690; J7120; J2405 ×2; C1788; J2710

== ENCOUNTER 2020-07-25 19:09 | Emergency (ER) | payer OTHER ==
[2020-07-25] MEDS ORDERED: Caclcium Chloride 10% INJ SYR IV ONE (19:10)
[2020-07-25] MEDS ORDERED: EPINEPHRINE/PF 1 MG/ML AMP IV ONE (19:10)
[2020-07-25] MEDS ORDERED: EPINEPHrine 1 MG/10 ML SYR IV ONE ×2 (19:10)
[2020-07-25] MEDS ORDERED: NA CHLORIDE 0.9% 1,000 ML IV ONE ×2 (19:10)
[2020-07-25] MEDS ORDERED: LIDOCAINE 100 MG/5 ML SYRINGE IV ONE (19:10)
[2020-07-25] MEDS ORDERED: CEFTRIAXONE/SWI 1gm 1 GM/10 ML SYR ONE (20:22)
[2020-07-25] MEDS ORDERED: FAMOTIDINE 20 MG/2 ML VIAL IV ONE (20:22)
[2020-07-25] MEDS ORDERED: NA CHLORIDE 0.9% 3,000 ML ONE (20:22)
--- NOTE | 2020-07-25 20:31 | RAD REPORT ---
EXAM DESCRIPTION: RAD - Chest Single View - 07/25/2020 8:21 pm CLINICAL HISTORY: Sepsis Chest pain. COMPARISON: Chest Single View dated 12/27/2019; Chest Single View dated 12/08/2019; Chest Pa And Lat (2 Views) dated 11/21/2019; Chest Single View dated 11/18/2019; Abdomen Pelvis W Contrast dated 0 FINDINGS: Portable technique limits examination quality. Elevated right hemidiaphragm is seen with small right pleural effusion. The lungs are otherwise gross ly clear. The heart is upper limit normal size with sternotomy wires present. A left-sided venous cat heter tip in the SVC.
[2020-07-25 20:37] LABS: Absolute Lymphocytes (CBC) 0.6 K/uL (0.7-4.9); Basophils % 0.2 % (0-1.3); Hematocrit 17.9 % (39.6-49.0); Lymphocytes % 3.4 % (15.3-44.8); MPV 9.4 fL (7.6-11.3); RBC Red Blood Cell Count 1.79 M/uL (4.33-5.43)
[2020-07-25 20:41] LABS: Protime INR 1.19
[2020-07-25 21:08] LABS: ALT/SGPT 42 U/L (12-78); AST/SGOT 136 U/L (15-37); Albumin 2.5 g/dL (3.4-5.0); Alkaline Phosphatase 153 U/L (45-117); Amylase 35 U/L (25-115); BUN Blood Urea Nitrogen 23 mg/dL (7-18); Bicarbonate 28 mmol/L (21-32); Bilirubin Direct 0.4 mg/dL (0-0.2); Bilirubin Total 0.8 mg/dL (0.2-1.0); Creatine Phosphokinase 415 U/L (39-308); Glucose Level 106 mg/dL (74-106); Lipase 54 U/L (73-393); Potassium 3.6 mmol/L (3.5-5.1); Sodium Level 138 mmol/L (136-145)
[2020-07-25 21:33] LABS: Platelet Estimate DECR; White Blood Cell Scan OK (OK)
[2020-07-25 21:34] LABS: Blood Morphology Comment NOT SEEN (NOT SEEN)
[2020-07-25] MEDS ORDERED: PANTOPRAZOLE 40 MG INJ ONE (21:46)
[2020-07-25] MEDS ORDERED: NA CHLORIDE 0.9% 250 ML ONE ×2 (21:47→23:16)
[2020-07-25] MEDS ORDERED: PIPER/TAZO/NS 3.375gm 3.375 GM/100 ML BAG ONE (22:22)
[2020-07-25] MEDS ORDERED: DIPHENHYDRAMINE 50 MG/ML VIAL ONE (22:22)
[2020-07-25] MEDS ORDERED: ACETAMINOPHEN 325 MG TABLET ONE (22:27)
[2020-07-25] MEDS ORDERED: ACETAMINOPHEN 650MG/RECT SUPP PR ONE (23:00)
[2020-07-25] MEDS ORDERED: RSI MEDICATION KIT IV ONE (23:12)
--- NOTE | 2020-07-25 23:50 | ER ---
Nurse's Notes [facility] Name: Bernard Joiner Jr Age: 60 yrs Sex: Male : 1960 Arrival Date: 07/25/2020 Time: 19:17 Bed 4 Private MD: Diagnosis: Gastrointestinal hemorrhage, unspecified;Anemia, unspecified;Cardiogenic shock;Non-ST elevation (NSTEMI) myocardial infarction;Cardiac arrest;Hypotension Presentation: 07/25 19:20 Chief complaint: Patient states: SOB for 2 weeks. O2 sats. in the 80's. Weak, pale, not ll1 feeling well. Possible dehydration. Coronavirus screen: Client denies travel out of the [place] in the last 14 days. cough unrelated to allergies, fatigue, Client presents with at least one sign or symptom that may indicate coronavirus-19. Standard/surgical mask placed on the client. Ebola Screen: Patient denies travel to an Ebola-affected area in the 21 days before illness onset. Initial Sepsis Screen: Does the patient meet any 2 criteria? HR > 90 bpm. Risk Assessment: Do you want to hurt yourself or someone else? Patient reports no desire to harm self or others. Onset of symptoms was July 10, 2020. 19:20 Method Of Arrival: Wheelchair ll1 19:20 Acuity: CHARLIE 2 ll1 19:20 Initial Sepsis Screen: Does the patient have a suspected source of infection? Yes: Productive cough/pneumonia Other: Chemo Pt. 20:00 Care prior to arrival: None. Compressions began at 22:50. Triage Assessment: 20:00 Respiratory: the patient has mild shortness of breath. 20:00 Respiratory: Onset: The symptoms/episode began/occurred couple of weeks ago. Historical: - Allergies: 19:23 No Known Allergies; ll1 - PMHx: 19:23 Hyperlipidemia; Hypertension; hypotension; LYMPHOMA; ll1 - PSHx: 19:23 lymphoma removal in the neck area; Heart stents; open heart surgery; ll1 - Immunization history:: Flu vaccine is not up to date. - Social history:: Smoking status: Patient/guardian denies using tobacco, Stopped _ months ago .5. Screenin:00 Abuse screen: Denies threats or abuse. Denies injuries from another. Nutritional screening: No deficits noted. Tuberculosis screening: No symptoms or risk factors identified. Fall Risk None identified. Assessment: 19:45 General: Appears in no apparent distress. Behavior is calm, cooperative, appropriate wh for age. Pain: Complains of pain in chest Pain does not radiate. Neuro: Level of Consciousness is awake, alert, obeys commands, Oriented to person, place, time, situation, Appropriate for age. Neuro: Reports weakness generalized. Cardiovascular: Heart tones S1 S2. Cardiovascular:. Cardiovascular: Reports chest pain, shortness of breath. Respiratory: Airway is patent Respiratory effort is even, unlabored, Respiratory pattern is regular, symmetrical, Breath sounds are diminished bilaterally. GI: Abdomen is round non-distended, hernia noted. : No signs and/or symptoms were reported regarding the genitourinary system. EENT: No signs and/or symptoms were reported regarding the EENT system. Derm: Skin is intact, is healthy with good turgor, Skin is pink, warm \T\ dry. normal. Musculoskeletal: Circulation, motion, and sensation intact. 21:00 Reassessment: Patient appears in no apparent distress at this time. No changes from previously documented assessment. Patient and/or family updated on plan of care and expected duration. Pain level reassessed. Patient is alert, oriented x 3, equal unlabored respirations, skin warm/dry/pink. 22:30 Reassessment: Patient appears in no apparent distress at this time. Patient and/or family updated on plan of care and expected duration. Pain level reassessed. Patient is alert, oriented x 3, equal unlabored respirations, skin warm/dry/pink. PT just got back from CT Scan already having bowel movement, was placed on bed stoll. 22:45 Reassessment: Pt was seen unresponsive, snoring, code initiated. 22:51 CPR assessment: CPR started. [facility] 22:53 CPR assessment: unresponsive, agonal respirations, pale, CPR continued. jd3 22:53 Cardiac rhythm is PEA. jd3 22:57 Cardiac rhythm is PEA. jd3 23:00 Cardiac rhythm is PEA. jd3 23:03 Cardiac rhythm is PEA. jd3 23:05 CPR assessment: pale, ROSC. jd3 23:09 Reassessment: premedicated for blood transfusion. jd3 23:11 Reassessment: blood transfusion started. jd3 07/26 00:30 Reassessment: Report given to Marleny Ge RN. 02:18 Reassessment: PATIENT WENT TO [facility]. CPR STARTED. GIVEN EPINEPHRINE EVERY [address] silke COONEY UPDATED. FAMILY UPDATED. REFER TO CPR FORM. RETURN OS SPONTANEOUS CIRCULATION. 14:34 Reassessment: COVID-19 results (Negative) faxed to [facility] ICU. Vital Signs: 07/25 19:20 BP 83 / 56; Pulse 84; Resp 18; Temp 97.9; Pulse Ox 96% ; Weight 87.54 kg; Height 5 ft. wh 7 in. (170.18 cm); Pain 0/10; 20:00 BP 87 / 66; Pulse 87; Resp 18; Pulse Ox 98% on 2 lpm NC; wh 22:00 BP 91 / 57; Pulse 82; Resp 18; Pulse Ox 97% 2 lpm ; wh 22:00 BP 90 / 58; Pulse 83; Resp 18; Pulse Ox 98% on 2 lpm NC; wh 23:03 Pulse Ox 98% on ETT ambu; jd3 23:05 BP 166 / 117; Pulse 123; Pulse Ox 98% on ETT ambu; jd3 23:11 BP 138 / 105; Pulse 140; Resp 20 A; jd3 23:17 BP 151 / 116; Pulse 137; jd3 23:22 BP 133 / 109; Pulse 123; Resp 18 A; Pulse Ox 98% on ETT ambu; jd3 07/26 00:22 BP 130 / 104; Pulse 116; Resp 15 A; Pulse Ox 94% on ETT vent; mw2 00:45 BP 138 / 102; Pulse 108; Resp 15 A; Pulse Ox 97% on 100% FiO2 ETT vent; rv 01:15 BP 57 / 48; rv 01:32 BP 143 / 121; Pulse 120; Resp 21; Pulse Ox 98% on ETT vent; rv 01:45 BP 99 / 76; Pulse 84; Resp 15; Pulse Ox 98% on ETT vent; rv 07/25 19:20 Body Mass Index 30.23 (87.54 kg, 170.18 cm) 07/25 23:11 pulse ox not reading jd3 ED Course: 19:17 Patient arrived in ED. bp1 19:23 Triage completed. ll1 19:23 Arm band placed on Patient placed in an exam room, on a stretcher. ll1 19:41 Patient code sepsis called overhead. ll1 19:49 Monty Mckeon is Primary Nurse. 19:53 Narinder Cooney MD is Attending Physician. [facility] 19:55 Bed in low position. Call light in reach. Side rails up X 1. Side rails up X2. Warm jp3 blanket given. Verbal reassurance given. manager speech on. Pulse ox on. NIBP on. 19:55 Inserted saline lock: 20 gauge in right antecubital area, using aseptic technique. jp3 Blood collected. 19:55 Initial lab(s) drawn, by me, sent to lab. First set of blood cultures drawn by me. jp3 20:05 EKG done, by ED staff, reviewed by Narinder Cooney MD. jp3 20:22 Chest Single View XRAY In Process Unspecified. EDMS 20:25 Flu and/or RSV swab sent to lab. T\T\S collected, blood band applied to patient. Pt jp3 swabbed for COVID-19. 20:42 initiated a transfer with Lucille Allen from [facility]. mw2 20:45 Second set of blood cultures drawn by ne. jp3 21:45 EKG done, by ED staff, reviewed by Narinder Cooney MD. jp3 21:56 Accessed Port-a-Cath. using accessed w/ # 20 Liu needle, Clean \T\ dry. No blood sg return. Flushes easily. 22:42 CT Aorta for Dissection In Process Unspecified. EDMS 22:59 Koch cath inserted, using sterile technique, 16 Fr., by ED staff, balloon inflated, to jd3 gravity drainage. 23:01 Intubation: Ventilated with 100% bag valve mask (BVM) prior to procedure. 7.5 Fr. ETT jd3 placed orally. Cricoid pressure applied during procedure. Performed by Narinder Cooney MD Successful on first attempt. Placement verified by CO2 detector w/ + color change, auscultating bilateral breath sounds, Ventilated with Ambu bag. 23:01 Assisted provider with intubation ET tube secured at 23cm at the teeth. jd3 23:17 Assisted provider with central line placement. Set up central line tray. Triple lumen jd3 line placed in right femoral. Line placed by Narinder Cooney MD Placement verified by blood return, Dressed with Tape, Tegaderm. 23:55 administrative approval given by Lucille Allen/ patient has been accepted to [address] to the Medical ICU/ Dr. Putnam has accepted the patient in transfer/ report to be called to [phone]. 07/26 00:31 Chest Single View XRAY In Process Unspecified. EDMS 00:33 Chest Single View XRAY In Process Unspecified. EDMS 01:11 Patient transferred, IV remains in place. 01:34 Primary Nurse role handed off by Monty Mckeon Administered Medications: 07/25 20:28 Drug: Pepcid 20 mg Route: IVP; Site: right antecubital; 20:28 Drug: NS 0.9% (30 ml/kg) 30 ml/kg Route: IV; Rate: bolus; Site: right antecubital; 20:40 Drug: Rocephin 1 grams Route: IV; Rate: per protocol; Site: right antecubital; 21:40 Drug: ProTONIX 80 mg Route: IVP; Site: right antecubital; 21:46 Drug: ProTONIX 8 mg/hr Route: IV; Rate: 25 ml/hr; Site: right antecubital; 22:54 Drug: EPINEPHrine 0.1mg/mL 1:10,000 1 mg Route: IVP; Site: right antecubital; [facility] 22:56 Drug: NS 0.9% 1000 ml Route: IV; Rate: 1 bolus; Site: right antecubital; jd3 22:57 Drug: Sodium Bicarbonate 1 amp Route: IVP; Site: right antecubital; jd3 22:57 Drug: EPINEPHrine 0.1mg/mL 1:10,000 1 mg Route: IVP; Site: right antecubital; jd3 22:58 Drug: Calcium Chloride 1 grams Route: IVP; Site: right antecubital; jd3 22:59 Drug: EPINEPHrine 0.1mg/mL 1:10,000 1 mg Route: IVP; Site: right antecubital; jd3 23:03 Drug: EPINEPHrine 0.1mg/mL 1:10,000 1 mg Route: IVP; Site: right antecubital; jd3 23:15 Drug: Benadryl 25 mg Route: IVP; Site: Port-a-cath; 23:15 Drug: Tylenol Suppository 650 mg Route: MA; 07/26 00:00 Drug: Rocuronium 50 mg Route: IVP; Site: right antecubital; sg 00:00 Drug: Etomidate 10 mg Route: IVP; Site: right antecubital; sg 00:14 Drug: Zosyn 3.375 grams Route: IVPB; Infused Over: 60 mins; Site: right antecubital; 00:16 Drug: Lopressor 2.5 mg Route: IVP; Site: right antecubital; 01:11 Follow up: Response: No adverse reaction; Blood pressure is lowered wh 01:22 Drug: EPINEPHrine 0.1mg/mL 1:10,000 1 mg Route: IVP; Site: right femoral; rv 01:24 Drug: Lidocaine 100 mg Route: IVP; Site: right femoral; rv 01:25 Drug: EPINEPHrine 0.1mg/mL 1:10,000 1 mg Route: IVP; Site: right femoral; rv 01:25 Drug: NS 0.9% 1000 ml Route: IV; Rate: 1 bolus; Site: right femoral; rv 01:27 Drug: Sodium Bicarbonate 1 amp Route: IVP; Site: right femoral; rv Outcome: 07/25 23:49 ER care complete, transfer ordered by MD. edwards 07/26 00:54 Patient left the ED. 01:09 Transferred by ground EMS to [facility], Transfer form completed. X-rays sent w/ patient. Note: Report given to [facility] 01:09 Condition: stable 01:09 Instructed on the need for admit. 01:11 Outcome Resuscitation successful 02:07 Patient left the ED. rv Signatures: Dispatcher [employer] EDMS Mario Palacios RN RN sg Anderson, Corey, MD MD cha Smirch, Shelby, RN RN Monty Mckeon Ramesh Guidry RN RN jd3 Shun Maldonado mw2 Jah Vargas RN RN Leif Mccord jp3 Dayanna Quintana RN RN ll1 Miranda Xavier bp1 Corrections: (The following items were deleted from the chart) 07/25 19:41 19:20 BP 83 / 56; Pulse 84bpm; Resp 18bpm; Pulse Ox 96%; Temp 96F; Pain 0/10; ll1 ll1 20:09 19:20 BP 83 / 56; Pulse 84bpm; Resp 18bpm; Pulse Ox 96%; Temp 97.9F; Pain 0/10; ll1 21:56 21:53 Accessed Port-a-Cath. using accessed w/ # 20 Liu needle, ,sterile technique, rv per hospital protocol. Clean \T\ dry. No blood return. Flushes easily. rv 23:43 22:53 CPR assessment: unresponsive, agonal respirations, pale, jd3 [facility] 07/26 00:04 09 22:53 CPR assessment: unresponsive, agonal respirations, pale, CPR started d3 [facility] 07/26 00:05 07/25 22:53 CPR assessment: unresponsive, agonal respirations, pale, CPR started [place] [id number] 07/26 00:51 07/25 19:45 Pain: Denies pain. [facility] 07/26 00:51 07/25 19:45 Cardiovascular: Denies chest pain, [facility] 07/26 02:35 02:18 Reassessment: PATIENT WENT TO [facility]. CPR STARTED. GIVEN EPINEPHRINE EVERY [address] COONEY UPDATED. FAMILY UPDATED. REFER TO CPR FORM. rv 14:35 14:34 Reassessment: COVID-19 results (Negativew) faxed to [facility] ICU ss ss
--- NOTE | 2020-07-25 23:50 | EDPHYS ---
Physician Documentation [facility] Name: Bernard Joiner Jr Age: 60 yrs Sex: Male : 1960 Arrival Date: 07/25/2020 Time: 19:17 Bed 4 Private MD: ED Physician Narinder Valladares HPI: 07/25 21:32 This 60 yrs old Male presents to ER via Wheelchair with complaints of grace Breathing Difficulty. 21:32 The patient has shortness of breath at rest. Onset: The symptoms/episode began/occurred grace 3 day(s) ago. Duration: The symptoms are continuous, and are steadily getting worse. The patient's shortness of breath is aggravated by coughing, exertion, light activity, is alleviated by elevating head, rest, application of supplemental oxygen. Associated signs and symptoms: Pertinent positives: non-productive cough, diaphoresis, dizziness. Severity of symptoms: At their worst the symptoms were moderate today, last night. The patient has experienced similar episodes in the past, several times. Historical: - Allergies: 19:23 No Known Allergies; ll1 - PMHx: 19:23 Hyperlipidemia; Hypertension; hypotension; LYMPHOMA; ll1 - PSHx: 19:23 lymphoma removal in the neck area; Heart stents; open heart surgery; ll1 - Immunization history:: Flu vaccine is not up to date. - Social history:: Smoking status: Patient/guardian denies using tobacco, Stopped _ months ago .5. ROS: 21:34 Eyes: Negative for injury, pain, redness, and discharge, Neck: Negative for injury, grace pain, and swelling, Endocrine: Negative for neck swelling, polydipsia, polyuria, polyphagia, and marked weight changes. 21:34 Constitutional: Positive for fatigue, malaise. 21:34 Eyes: Positive for sunken appearance. 21:34 Cardiovascular: Positive for chest pain, palpitations. 21:34 Respiratory: Positive for cough, shortness of breath, at rest. 21:34 Abdomen/GI: Positive for abdominal distension. 21:34 MS/extremity: Positive for pain, swelling, of the right leg and left leg. Exam: 21:34 Head/Face: Normocephalic, atraumatic. grace 21:34 Constitutional: The patient appears frail, in obvious distress, mildly distressed. 21:34 Eyes: Conjunctiva: pale. 21:34 Cardiovascular: Rate: normal, Rhythm: regular, Pulses: Pulses are 3+ in bilateral radial, brachial, femoral, popliteal, posterior tibial and and dorsalis pedis arteries.. Heart sounds: normal, Edema: 3+ edema to level of left knee, left midcalf and right midcalf, JVD: is noted bilaterally, to 1 cm. 21:34 Respiratory: mild respiratory distress is noted, Respirations: normal, Breath sounds: decreased breath sounds, that are mild. 21:34 Abdomen/GI: Inspection: distension, Bowel sounds: normal, Palpation: nontender, Liver: no appreciated palpable abnormalities, Hernia: noted in the umbilical area, incarceration, is not appreciated, tenderness, is not appreciated, bowel sounds are appreciated on auscultation. 21:34 Musculoskeletal/extremity: ROM: full active range of motion, full passive range of motion, Circulation is intact in all extremities. Sensation intact. Compartment Syndrome exam of affected extremity: is normal. DVT Exam: no pain, no tenderness, negative Homans' sign noted on exam, no appreciated bluish discoloration, no erythema, no increased warmth, swelling, of the left leg. 21:34 Skin: Appearance: Color: pale, Temperature: normal temperature, Moisture: normal moisture, petechiae, not noted, ecchymosis, not noted, flushing, not noted, diaphoresis is not appreciated. 21:48 ECG was reviewed by the Attending Physician. [facility] 21:54 ECG was reviewed by the Attending Physician. [facility] 21:59 Abdomen/GI: Rectal exam: Prostate: normal, rectal tone normal, Stool: guaiac positive, [facility] hemorrhoid(s), are not appreciated, mass, is not appreciated, swelling, is not appreciated, tenderness, is not appreciated, fecal impaction, is not appreciated, the exam is chaperoned by a family member. 07/26 00:20 ECG was reviewed by the Attending Physician. [facility] Vital Signs: 07/25 19:20 BP 83 / 56; Pulse 84; Resp 18; Temp 97.9; Pulse Ox 96% ; Weight 87.54 kg; Height 5 ft. wh 7 in. (170.18 cm); Pain 0/10; 20:00 BP 87 / 66; Pulse 87; Resp 18; Pulse Ox 98% on 2 lpm NC; wh 22:00 BP 91 / 57; Pulse 82; Resp 18; Pulse Ox 97% 2 lpm ; wh 22:00 BP 90 / 58; Pulse 83; Resp 18; Pulse Ox 98% on 2 lpm NC; wh 23:03 Pulse Ox 98% on ETT ambu; jd3 23:05 BP 166 / 117; Pulse 123; Pulse Ox 98% on ETT ambu; jd3 23:11 BP 138 / 105; Pulse 140; Resp 20 A; jd3 23:17 BP 151 / 116; Pulse 137; jd3 23:22 BP 133 / 109; Pulse 123; Resp 18 A; Pulse Ox 98% on ETT ambu; jd3 07/26 00:22 BP 130 / 104; Pulse 116; Resp 15 A; Pulse Ox 94% on ETT vent; mw2 00:45 BP 138 / 102; Pulse 108; Resp 15 A; Pulse Ox 97% on 100% FiO2 ETT vent; rv 01:15 BP 57 / 48; rv 01:32 BP 143 / 121; Pulse 120; Resp 21; Pulse Ox 98% on ETT vent; rv 01:45 BP 99 / 76; Pulse 84; Resp 15; Pulse Ox 98% on ETT vent; rv 07/25 19:20 Body Mass Index 30.23 (87.54 kg, 170.18 cm) 07/25 23:11 pulse ox not reading jd3 Procedures: 23:57 Intubation: Ventilated with 100% NRB prior to procedure. Intubated orally using # 4 grace Brad blade with 7.5 mm ETT. was successful on first attempt. Ventilated with Ambu bag. ventilator. Cricoid pressure applied during procedure. Placement verified by CXR, CO2 detector with (+) color change, auscultating bilateral breath sounds, glide scope to verify. Patient tolerated well. Central Line: the site was prepped with Betadine, in sterile fashion, a triple lumen catheter was inserted, in the right femoral vein, in 1 attempts. placement was verified, by blood return, the site was dressed with using sterile technique, the patient tolerated the procedure, well. MDM: 19:54 Patient medically screened. grace 21:38 Differential diagnosis: Anxiety Reaction asthma, Myocardial Infarction pneumonia, grace Pneumothorax pulmonary edema, Unstable Angina. Antibiotic administration: rocephin. Differential Diagnosis sepsis. The patient's Wells Deep Vein Thrombosis Score was calculated as follows: Malignancy Total Score: 0-2 Pts- Low Risk. The patient's pulmonary embolism risk score was calculated as follows: malignancy Total Score: 0-2 points. This patient was found to be at low risk for a pulmonary embolism by using the Well's assessment criteria. Immunization status: Influenza vaccine: Data reviewed: vital signs, nurses notes, lab test result(s), EKG, radiologic studies, CT scan, plain films. Data interpreted: playground monitor: rate is 84 beats/min, Pulse oximetry: on room air is 85 %. Test interpretation: by ED physician or midlevel provider: ECG, plain radiologic studies. ED course: acute gi bleed, dyspnea, mi, trop 17, hgb 5.8. 23:49 Other consultation: dr guevara with gi accepting, dr patel cardio accepting, to [facility], life flight if possible. Special discussion: dw family, told of grave prognosis. 23:55 ED course: dr qureshi and dr leon dw on the case, will accept and recommend fo further [facility] treatment at this time. 07/25 19:50 Order name: Amylase, Serum; Complete Time: 07/25 19:50 Order name: Basic Metabolic Panel; Complete Time: :07/25 19:50 Order name: Blood Culture Adult (2) 07/25 19:50 Order name: CBC with Diff; Complete Time: 07/25 19:50 Order name: Ckmb; Complete Time: :07/25 19:50 Order name: CPK; Complete Time: :07/25 19:50 Order name: Lactate; Complete Time: :07/25 19:50 Order name: LFT's; Complete Time: :07/25 19:50 Order name: Lipase; Complete Time: :07/25 19:50 Order name: Procalcitonin; Complete Time: :07/25 19:50 Order name: Protime (+inr); Complete Time: :07/25 19:50 Order name: Ptt, Activated; Complete Time: :07/25 19:50 Order name: Troponin (emerg Dept Use Only); Complete Time: :07/25 19:50 Order name: Chest Single View XRAY; Complete Time: : 07/25 19:56 Order name: Type And Screen [facility] 07/25 19:56 Order name: Flu [facility] 07/25 19:56 Order name: COVID-19 [facility] 07/25 20:40 Order name: Glucose, Ancillary Testing; Complete Time: 21:19 [facility] 07/25 21:33 Order name: CBC Smear Scan; Complete Time: 21:52 [facility] 07/25 21:53 Order name: CT Aorta for Dissection [facility] 07/25 22:03 Order name: Packed RBC Leukored [facility] 07/25 23:45 Order name: Chest Single View XRAY [facility] 07/25 23:56 Order name: ABG; Complete Time: 00:19 [facility] 07/26 00:01 Order name: Chest Single View XRAY [facility] 07/25 19:50 Order name: Accucheck; Complete Time: 20: 07/25 19:50 Order name: Cardiac monitoring; Complete Time: 20: 07/25 19:50 Order name: EKG - Nurse/Tech; Complete Time: 20: 07/25 19:50 Order name: IV Saline Lock - Large Bore; Complete Time: 20: 07/25 19:50 Order name: Labs collected and sent; Complete Time: 20: 07/25 19:50 Order name: O2 Per Protocol; Complete Time: 20: 07/25 19:50 Order name: O2 Sat Monitoring; Complete Time: 20: 07/25 21:06 Order name: IV Saline Lock - Large Bore; Complete Time: 21:46 [facility] 07/25 21:32 Order name: EKG; Complete Time: 21:33 [facility] 07/25 23:45 Order name: EKG; Complete Time: 23:46 [facility] 07/25 21:32 Order name: EKG - Nurse/Tech; Complete Time: 21:46 [facility] 07/25 23:45 Order name: Central Line Kit; Complete Time: 00:16 [facility] 07/25 23:45 Order name: EKG - Nurse/Tech; Complete Time: 00:16 [facility] 07/25 23:56 Order name: NG Tube; Complete Time: 00:16 [facility] EC:48 Rate is 83 beats/min. Rhythm is regular. QRS [place] is Normal. NE interval is normal. QRS grace interval is normal. QT interval is normal. No Q waves. T waves are Normal in leads II, III, aVF, V1, V2, V3, V4. Clinical impression: LVH and Non Q-wave CT. Interpreted by me. Reviewed by me. 21:54 Rate is 87 beats/min. Rhythm is regular. QRS [place] is Normal. NE interval is normal. QRS grace interval is prolonged at 144 msec. QT interval is normal. No Q waves. T waves are Normal. ST Segment is depressed in leads I, II, III, aVL, aVF, V1, V2, V3, V4, V5, V6. Clinical impression: Non Q-wave CT. Interpreted by me. Reviewed by me. 07/26 00:20 Rate is 135 beats/min. Rhythm is regular. QRS [place] is Normal. NE interval is normal. grace QRS interval is normal. QT interval is normal. No Q waves. T waves are Normal. ST Segment is depressed in leads I, II, III, aVF, V1, V2, V3, V4, V5, V6. Clinical impression: Cardiac ischemia, LVH, and No evidence of ischemia. Interpreted by me. Reviewed by me. Administered Medications: 07/25 20:28 Drug: Pepcid 20 mg Route: IVP; Site: right antecubital; 20:28 Drug: NS 0.9% (30 ml/kg) 30 ml/kg Route: IV; Rate: bolus; Site: right antecubital; 20:40 Drug: Rocephin 1 grams Route: IV; Rate: per protocol; Site: right antecubital; 21:40 Drug: ProTONIX 80 mg Route: IVP; Site: right antecubital; 21:46 Drug: ProTONIX 8 mg/hr Route: IV; Rate: 25 ml/hr; Site: right antecubital; 22:54 Drug: EPINEPHrine 0.1mg/mL 1:10,000 1 mg Route: IVP; Site: right antecubital; [facility] 22:56 Drug: NS 0.9% 1000 ml Route: IV; Rate: 1 bolus; Site: right antecubital; [facility] 22:57 Drug: Sodium Bicarbonate 1 amp Route: IVP; Site: right antecubital; [facility] 22:57 Drug: EPINEPHrine 0.1mg/mL 1:10,000 1 mg Route: IVP; Site: right antecubital; [facility] 22:58 Drug: Calcium Chloride 1 grams Route: IVP; Site: right antecubital; j 22:59 Drug: EPINEPHrine 0.1mg/mL 1:10,000 1 mg Route: IVP; Site: right antecubital; jd3 23:03 Drug: EPINEPHrine 0.1mg/mL 1:10,000 1 mg Route: IVP; Site: right antecubital; jd3 23:15 Drug: Benadryl 25 mg Route: IVP; Site: Port-a-cath; 23:15 Drug: Tylenol Suppository 650 mg Route: NE; 07/26 00:00 Drug: Rocuronium 50 mg Route: IVP; Site: right antecubital; 00:00 Drug: Etomidate 10 mg Route: IVP; Site: right antecubital; 00:14 Drug: Zosyn 3.375 grams Route: IVPB; Infused Over: 60 mins; Site: right antecubital; 00:16 Drug: Lopressor 2.5 mg Route: IVP; Site: right antecubital; 01:11 Follow up: Response: No adverse reaction; Blood pressure is lowered wh 01:22 Drug: EPINEPHrine 0.1mg/mL 1:10,000 1 mg Route: IVP; Site: right femoral; rv 01:24 Drug: Lidocaine 100 mg Route: IVP; Site: right femoral; rv 01:25 Drug: EPINEPHrine 0.1mg/mL 1:10,000 1 mg Route: IVP; Site: right femoral; rv 01:25 Drug: NS 0.9% 1000 ml Route: IV; Rate: 1 bolus; Site: right femoral; rv 01:27 Drug: Sodium Bicarbonate 1 amp Route: IVP; Site: right femoral; rv Disposition: 07/25/20 23:49 Transfer ordered to [facility]. Diagnosis are Gastrointestinal hemorrhage, unspecified, Anemia, unspecified, Cardiogenic shock, Non-ST elevation (NSTEMI) myocardial infarction, Cardiac arrest, Hypotension. - Reason for transfer: Higher level of care. - Accepting physician is to [facility], icu. - Condition is Critical. - Problem is new. - Symptoms have worsened. Signatures: Dispatcher [employer] EDMario Alexandre RN RN sg Anderson, Corey, MD MD cha Habalo, Winsy Ramesh Guidry RN RN jd3 Vicente, Ronaldo, RN RN Dayanna Monroe RN RN ll1 Corrections: (The following items were deleted from the chart) 00:54 07/25 23:49 07/25/2020 23:49 Transfer ordered to [facility]. Diagnosis is sg Gastrointestinal hemorrhage, unspecified; Anemia, unspecified; Cardiogenic shock; Non-ST elevation (NSTEMI) myocardial infarction; Cardiac arrest; Hypotension. Reason for transfer: Higher level of care. Accepting physician is to [facility], [facility]. Condition is Critical. Problem is new. Symptoms have worsened. [facility] 07/26 02:07 00:54 07/25/2020 23:49 Transfer ordered to [facility]. Diagnosis is rv Gastrointestinal hemorrhage, unspecified; Anemia, unspecified; Cardiogenic shock; Non-ST elevation (NSTEMI) myocardial infarction; Cardiac arrest; Hypotension. Reason for transfer: Higher level of care. Accepting physician is to [facility], icu. Condition is Critical. Problem is new. Symptoms have worsened. sg
[2020-07-26 00:05] LABS: Arterial Blood Carboxyhemoglob 1.8 % (0-1.5); Blood Gas Oxyhemoglobin 95.8 % (94-97); Blood O2 Saturation 98.8 % (92-98.5)
[2020-07-26] MEDS ORDERED: METOPROLOL TARTRATE 5 MG/5 ML INJ IV ONE (00:18)
[2020-07-26 01:07] VITALS: TEMP 97.9
[2020-07-26 01:14] VITALS: BP 130/104; O2SAT 94
[2020-07-26] MEDS ORDERED: AMIODARONE HCL 150 MG/3 ML INJ IV ONE ×2 (01:41)
[2020-07-26] MEDS ORDERED: NOREPINEPHRINE 4mg/D5W 250mL 4 MG/250 ML BAG IV ONE (01:43)
[2020-07-26] MEDS ORDERED: NA CHLORIDE 0.9% 250 ML ONE (01:49)
--- NOTE | 2020-07-26 08:19 | RAD REPORT ---
EXAM DESCRIPTION: Jayson Single View07/26/2020 12:33 am CLINICAL HISTORY: Shortness of breath. Device placement. Endotracheal tube placement COMPARISON: July 25, 2020 FINDINGS: Endotracheal tube has its tip just above the anitha pointing towards the right mainstem br onchus. Nasogastric tube and central venous line in place Postsurgical changes involve the chest No significant change in mild to moderate bilateral pulmonary opacities probably pulmonary edema. The heart remains enlarged
--- NOTE | 2020-07-26 08:20 | RAD REPORT ---
EXAM DESCRIPTION: Jayson Single View07/26/2020 12:31 am CLINICAL HISTORY: Shortness of breath COMPARISON: July 25 FINDINGS: [id number] bilateral pulmonary opacities. Cardiomegaly. Endotracheal tube with its tip 2 centimeters above the anitha Nasogastric tube within the stomach Central venous line in place IMPRESSION: Mild to moderate bilateral pulmonary opacities probably pulmonary edema
--- NOTE | 2020-07-26 10:01 | RAD REPORT ---
EXAM DESCRIPTION: CT - Angio Aorta For Dissection - 07/26/2020 7:00 am CLINICAL HISTORY: Shortness of breath for 2 weeks. Weakness. Evaluate for aortic dissection or pulmo nary embolism. COMPARISON: 07/04/2020 TECHNIQUE: CT angiogram of the chest, abdomen, and pelvis with IV contrast. 3-D MIP images were obta ined in coronal and sagittal reconstructions in post-processing. This exam was performed according to our departmental dose-optimization program, which includes automated exposure control, adjustment of the mA and/or kV according to patient size and/or use of iterative reconstruction technique. FINDINGS: The thyroid gland is unremarkable. No mediastinal or hilar adenopathy. The heart size is m ildly enlarged without pericardial effusion. There is a small right pleural effusion with atelectasis in the right lower lobe. No filling defects are seen in the main pulmonary arteries or the segmental branches. The liver has a nodular quality. The spleen, pancreas, adrenal glands, kidneys, and pelvic organs are unremarkable. Tiny gallstones are seen. There is large amount of ascites throughout the abdomen and pelvis. No free air or adenopathy. There is a umbilical hernia which contains fat and bowel loops but no inflammatory changes or bowel obstruction. There is no aortic aneurysm or dissection. Diffuse atelectatic calcifications of the aorta and its ma blayne branches The celiac trunk, superior and inferior mesenteric arteries, renal arteries, and aortoil iac bifurcation are patent. There is mild body wall anasarca. There are mild degenerative changes of the spine. Prior median sternotomy. IMPRESSION: 1. No aortic aneurysm or dissection. 2. No acute pulmonary embolism. 3. Gallstones without inflammatory changes. 4. Small right pleural effusion with adjacent atelectasis. Electronically signed by: Jarad Boudreaux MD 07/25/2020 11:30 PM CDT Due to temporary technical issues with the PACS/Fluency reporting system, reports are being signed by the in house radiologist without review as a courtesy to ensure prompt reporting. The interpreting r adiologist is fully responsible for the content of the report.
--- NOTE | 2020-07-26 12:02 | EKG ---
Test Date: 2020-07-26 Test Time: 00:03:54 Process Control Engineer: MEASUREMENT RESULTS: Intervals: Rate: 135 NH: 120 QRSD: 156 QT: 344 QTc: 516 [place]: P: NH: 120 QRS: 158 T: 22 INTERPRETIVE STATEMENTS: Sinus tachycardia with occasional premature ventricular complexes and fusion complexes Right bundle branch block Septal infarct, age undetermined Abnormal ECG Compared to ECG 07/25/2020 21:41:31 Fusion complex(es) now present Ventricular premature complex(es) now present Myocardial infarct finding now present Sinus rhythm no longer present Electronically Signed On 07-26-20 12:01:20 CDT by Shoaib Foster
--- NOTE | 2020-07-26 12:03 | EKG ---
Test Date: 2020-07-25 Test Time: 21:41:31 Welt Rander: DELBERT MEASUREMENT RESULTS: Intervals: Rate: 87 NC: 158 QRSD: 144 QT: 430 QTc: 517 [place]: P: 45 NC: 158 QRS: 107 T: 10 INTERPRETIVE STATEMENTS: Normal sinus rhythm Right bundle branch block Abnormal ECG Compared to ECG 07/25/2020 20:03:51 Fusion complex(es) no longer present ST (T wave) deviation no longer present Myocardial infarct finding no longer present Myocardial infarct finding no longer present Electronically Signed On 07-26-20 12:01:24 CDT by Shoaib Foster
--- NOTE | 2020-07-26 12:03 | EKG ---
Test Date: 2020-07-25 Test Time: 20:03:51 Reconciliation Analyst: MEASUREMENT RESULTS: Intervals: Rate: 83 SC: 162 QRSD: 140 QT: 442 QTc: 519 [place]: P: 45 SC: 162 QRS: 85 T: 63 INTERPRETIVE STATEMENTS: Sinus rhythm with fusion complexes Right bundle branch block ST elevation, consider inferior injury or acute infarct ACUTE [place] Consider right ventricular involvement in acute inferior infarct Abnormal ECG Compared to ECG 12/08/2019 14:43:39 Fusion complex(es) now present Right bundle-branch block now present ST (T wave) deviation now present T-wave abnormality no longer present Possible ischemia no longer present Myocardial infarct finding still present Myocardial infarct finding still present Electronically Signed On 07-26-20 12:01:28 CDT by Shoaib Foster
== END 2020-07-26 02:07 | disposition short-term general hospital (02) ==
LOC: ER 19:09
PROC: 30233N1 Transfusion of Nonautologous Red Blood Cells into Peripheral Vein, Percutaneous Approach (ICD-10-PCS; principal; 2020-07-26)
PROC: 5A02216 Assistance with Cardiac Output using Other Pump, Continuous (ICD-10-PCS; 2020-07-26)
PROC: 06HT33Z Insertion of Infusion Device into Right Foot Vein, Percutaneous Approach (ICD-10-PCS; 2020-07-26)
DX: R57.0 Cardiogenic shock (principal); I21.4 Non-ST elevation (NSTEMI) myocardial infarction; D64.9 Anemia, unspecified; K92.2 Gastrointestinal hemorrhage, unspecified; I95.9 Hypotension, unspecified; C85.91 Non-Hodgkin lymphoma, unspecified, lymph nodes of head, face, and neck; Z20.828 Contact with and (suspected) exposure to other viral communicable diseases; Z95.818 Presence of other cardiac implants and grafts
CPT/HCPCS: 93005 ×3; 87040 ×2; 85025; 80048; 36415; 82150; 86900; 86850; 82550; 85610; 86901; 82947; 80076; 83605; 85730; 84484; 82553; 83690; 84145; 87804 ×2; 71275; 74175; 71045 ×3; 94002; 82805; 36430; 92950; 36556; Q9967; J0171 ×3; J1200; J0282 ×2; C9113; J2543; J0696; P9016 ×3; J7050 ×3; J7030 ×3